=== PATIENT | female | born 1985 | race Caucasian/White ===

== ENCOUNTER → 2016-09-30 | Outpatient (REF) | payer OTHER ==
[~2016-09-30] MED LIST: IRONCAP2 PO; LEVO75TA4 PO; LEVO88TA3 PO; PRENTAB9 PO; ZOLO25TA PO; [UNRECOGNIZED DRUG - CODE] PO
== END ==
LOC: M LAB REF 17:00
PROVIDERS: ATTEND Specialist
DX: Z34.83 Encounter for supervision of other normal pregnancy, third trimester (principal)

== ENCOUNTER 2016-10-05 15:58 | Inpatient (IN) | payer OTHER ==
[2016-10-05] VITALS (9 sets, daily range): BP systolic 107–135; BP diastolic 62–86
[~2016-10-05] VITALS: Ht 167.6 cm; Wt 150.0 kg
[~2016-10-05 15:58] MED LIST changes: -LEVO88TA3 PO
[2016-10-05] MEDS ORDERED: LEVO88TA3 PO (16:21)
[2016-10-05 16:58] LABS: MEAN CORPUSCULAR HGB CONC 34.6 g/dl (32.0-36.5); MEAN CORPUSCULAR VOLUME 83.8 fl (80.0-96.0); RED CELL DISTRIBUTION WIDTH 15.5 % (11.5-14.5); WHITE BLOOD COUNT 9.4 K/mm3 (4.0-10.0)
[2016-10-05 17:04] LABS: ALT/SGPT 11 U/L (12-78); AST/SGOT 7 U/L (15-37); BILIRUBIN,TOTAL 0.2 MG/DL (0.2-1.0); GLOMERULAR FILTRATION RATE > 60.0 (>60); URIC ACID 5.6 MG/DL (2.6-6.0)
[2016-10-05 17:20] LABS: CONTROL LINE INT CTR LINE PRESENT; HIV SCRN NEGATIVE (NEGATIVE); HIV SCRN1 NEGATIVE (NEGATIVE)
[2016-10-05] MEDS: BETAMETHASONE SOLUSPAN 6MG/ML INJ 5ML (J0702) IM SCH (19:27)
--- NOTE | 2016-10-05 19:51 | HPE ---
DATE OF ADMISSION: 10/05/2016 Shannon is a 31-year-old 4, para 0-2-1-2 at 36 weeks gestation with an EDC of 11/02/2016 based on last menstrual period and confirmed by 12-week ultrasound. She presents to labor and delivery today after evaluation in the office for complaint of headache and just not feeling well since last evening. care was initiated at [facility] in the first trimester. course complicated by chronic hypertension and now with today's diagnosis of superimposed preeclampsia. She has been taking Aldomet 500 mg by mouth twice a day since early in the . Upon evaluation in the office today which she was found to have blood pressure elevated at 168/102, with +3 protein and her urine. Repeat blood pressure at rest in the office was 166/98. The decision was made to send her to labor and delivery for induction of labor at this time by Dr. Mindy Rehman. OBSTETRICAL HISTORY: September 2005 at 36 weeks gestation, spontaneous vaginal delivery, 4 pounds 7 ounces female preeclampsia. May 2011 36 weeks gestation with spontaneous vaginal delivery, 5 pounds 14 ounces female preeclampsia. 2016 elective termination of . OB LABS: Blood type A+, antibody screen negative. Initial pre-eclamptic profile at about 23 weeks gestation and returned normal results with a normal protein, urine creatinine ratio. All her other initial labs were never drawn. Gestational diabetic screening 126, GBS negative. She has undergone weekly testing with NST in the office and biophysical profiles which have all returned reassuring results. PAST MEDICAL HISTORY: Hypothyroid. Chronic hypertension. Childhood varicella. SURGERIES: Arm surgery at age 14 on her right arm. FAMILY HISTORY: Diabetes, hypertension, polycystic kidneys. TB. SOCIAL HISTORY: The father of baby is involved, his name is Hunter. She denies smoking, alcohol and drug use. There is was no history of sexually transmitted infections and she does deny a history of abuse; physical, sexual and emotional. ALLERGIES: No known drug allergies. CURRENT MEDICATIONS: Include - Aldomet 500 mg by mouth twice a day - levothyroxine 88 mg daily OBJECTIVE: Vital signs stable. Temperature 98, pulse 100, respirations 20. Upon arrival her blood pressure was 135/68. Currently her blood pressure is 116/62. However she does take Aldomet for blood pressure control, which she had taken just prior to arrival to L&D. heart rate at 16:25 hours was 155, moderate variability, positive excels, no decelerations were observed. She is currently not on external monitoring at this time. Her abdomen is gravid, cephalic presentation. Estimated weight 2500 grams. There is no pattern of regular contractions. Sterile vaginal exam performed in the office by Dr. Mindy Rehman her cervix is a fingertip dilated, long and minus three station. Pre-eclamptic labs were ordered. Upon arrival. Her spot urine was 0.97. HER PRE-ECLAMPTIC LABORATORY: CBC hemoglobin 9.7, hematocrit 28.0, platelets 241. Chemistry with uric acid at 5.6, AST 7, ALT 11 and LDH is 146. ASSESSMENT: Intrauterine at 36 weeks gestation. heart rate upon arrival to labor and delivery category one, superimposed preeclampsia upon chronic hypertension. PLAN: Per consult was Dr. Sam Willis, admit the patient to labor and delivery for induction of labor due to her current diagnosis. Out of bed ad moise. Regular diet at this time. Misoprostol 50 mcg by mouth every 4 hours for cervical ripening. Labs, saline lock, betamethasone for lung maturity because gestational age is prior to 36 and 6 days . I do anticipate labor, cervical ripening, spontaneous vaginal delivery. I did review risks to induction with the patient including failed induction, increased risk for section, intolerance to labor. The patient has had all her questions answered and decided to proceed with her induction of labor. NATANAEL
[2016-10-05] MEDS ORDERED: miSOPROStol 50 MCG 1/2 TAB (S0191) As Ordered ONE (19:55)
[2016-10-05] MEDS: miSOPROStol 50 MCG 1/2 TAB (S0191) PO SCH ×2 (19:58→23:47)
[2016-10-05] MEDS ORDERED: ACETAMINOPHEN 500 MG TAB PO PRN (20:00)
[2016-10-05] MEDS: METHYLDOPA 250 MG TAB PO SCH (20:57)
[2016-10-06] VITALS (41 sets, daily range): BP systolic 117–163; BP diastolic 57–103
[2016-10-06] MEDS: miSOPROStol 50 MCG 1/2 TAB (S0191) PO SCH (03:52)
[2016-10-06] MEDS ORDERED: FENTANYL 2MCG/ML ROPIVACAINE 0.2% NACL 250 ML CADD As Ordered ONE (04:07)
[2016-10-06 04:19] LABS: MEAN CORPUSCULAR HEMOGLOBIN 29.1 pg (27.0-33.0); MEAN CORPUSCULAR HGB CONC 33.7 g/dl (32.0-36.5); MEAN CORPUSCULAR VOLUME 86.2 fl (80.0-96.0); RED CELL DISTRIBUTION WIDTH 15.5 % (11.5-14.5); WHITE BLOOD COUNT 10.3 K/mm3 (4.0-10.0)
[2016-10-06] MEDS ORDERED: EPIDURAL COMMENT XX SCH (05:30)
[2016-10-06] MEDS ORDERED: ONDANSETRON 4MG/2ML VIAL (J2405) IV PRN (05:30)
[2016-10-06] MEDS ORDERED: diphenhydrAMINE INJ 50MG/ML VIAL (J1200) IV PRN (05:30)
[2016-10-06] MEDS ORDERED: FENTANYL/ROPIVACAINE/NACL CADD 250 ML EPIDURAL SCH (05:30)
[2016-10-06] MEDS ORDERED: NALOXONE INJ 0.4 MG/1 ML VIAL (J2310) IV PRN (05:30)
[2016-10-06] MEDS ORDERED: LACTATED RINGER'S 1000 ML IV PRN (05:30)
[2016-10-06] MEDS ORDERED: EPIDURAL/PCA KEYS XX PRN (05:30)
[2016-10-06] MEDS ORDERED: REFRIGERATOR IV KEYS XX PRN (05:30)
[2016-10-06] MEDS ORDERED: ePHEDrine SULFATE 25 MG/5 ML(5MG/ML) SYRINGE IV PRN (05:30)
[2016-10-06] MEDS ORDERED: LR 1,000 ML IV SCH (06:36)
[2016-10-06] MEDS ORDERED: OXYTOCIN DRIP 30 UNITS in APPROPRIATE DILUENT 1 EA IV SCH (06:45)
[2016-10-06] MEDS: BETAMETHASONE SOLUSPAN 6MG/ML INJ 5ML (J0702) IM SCH (07:32)
[2016-10-06] MEDS: PRENATAL VITAMIN TAB PO SCH (09:00)
[2016-10-06] MEDS: METHYLDOPA 250 MG TAB PO SCH ×2 (10:00→21:09)
[2016-10-06] MEDS ORDERED: MOM 30ML SUSPENSION UDC PO PRN (15:15)
[2016-10-06] MEDS ORDERED: RHOGAM 300 MCG (1500 IU) INJ (J2790) IM SCH (15:15)
[2016-10-06] MEDS ORDERED: ANUSOL HC CREAM 30GM TOP PRN (15:15)
[2016-10-06] MEDS ORDERED: DIBUCAINE 1% OINTMENT 30GM TOP PRN (15:15)
[2016-10-06] MEDS ORDERED: MEASLES,MUMPS,RUBELLA VACCINE INJ (MMR-II) (90707) SC SCH (15:15)
[2016-10-06] MEDS ORDERED: DOCUSATE SODIUM 100 MG CAP PO PRN (15:15)
[2016-10-06] MEDS ORDERED: IBUPROFEN 800 MG TAB PO PRN (15:15)
[2016-10-06] MEDS ORDERED: METHYLERGONOVINE MALEATE 0.2 MG TAB PO PRN (15:15)
[2016-10-06] MEDS ORDERED: OXYTOCIN INJ 10 UNITS/ML VIAL (J2590) IM ONE (15:15)
--- NOTE | 2016-10-06 15:33 | DN ---
DATE OF SERVICE: 10/06/2016 DATE OF DELIVERY: 10/06/2016 TIME OF : 1437 GENDER: Male. SCORES: 8 and 9. WEIGHT: 5 pounds 14 ounces, 2652 grams. ANESTHESIA: Epidural. LACERATIONS: None. ESTIMATED BLOOD LOSS: 300 mL. COUNTS: None. DELIVERY NOTE: On 10/06/2016, at 1437, Mrs. Zavala, a 31-year-old 4, now para 3, had a spontaneous vaginal delivery of a liveborn male , scores 8, 9. Weight 2652 grams, 5 pounds 14 ounces. Head was delivered left occipitoanterior (SERENITY) over intact peritoneum. There was a loose nuchal cord, which was manually reduced, followed by delivery of right anterior shoulder, left posterior shoulder, and corpus. Cord was clamped times two, was cut by the father of the baby under my direction. Infant was then handed to mom with a good cry. Cord blood was then obtained. Placenta was then drained and delivered grossly intact. There was 10 mL of Pitocin given intramuscularly (IM), along with uterine massage until uterus was firm. On inspection, the cervix, vagina and perineum was grossly intact and hemostatic. Mom and baby recovered in stable condition. The couple have decided to name their son
[2016-10-06] MEDS: ACETAMINOPHEN 500 MG TAB PO PRN (19:19)
[2016-10-07] MEDS: ACETAMINOPHEN 500 MG TAB PO PRN (05:50)
[2016-10-07] MEDS ORDERED: [UNRECOGNIZED DRUG - CODE] PO (08:58)
[2016-10-07] MEDS ORDERED: KETOROLAC 30 MG/ML VIAL (J1885) IV SCH (09:00)
[2016-10-07] MEDS ORDERED: ADACEL/BOOSTRIX VACCINE (DIPHTH/PERTUSS/ACELL/TETANUS)0.5ML SYR (90715) IM ONE (09:00)
[2016-10-07] MEDS ORDERED: DOCUSATE SODIUM 100 MG CAP PO SCH (09:00)
[2016-10-07] MEDS ORDERED: ACET50TA PO (09:07)
[2016-10-07] MEDS ORDERED: MOM30SS PO (09:08)
[2016-10-07] MEDS: PRENATAL VITAMIN TAB PO SCH (09:28)
[2016-10-07] MEDS: METHYLDOPA 250 MG TAB PO SCH (09:29)
[2016-10-07] MEDS ORDERED: MOM 30ML SUSPENSION UDC PO PRN (09:45)
[2016-10-07] MEDS ORDERED: KETOROLAC 30 MG/ML VIAL (J1885) IM SCH (15:00)
== END 2016-10-07 10:41 | disposition home or self-care (01) | DRG 560 ==
LOC: EDBD 15:58 → M LDI 15:58 → M OBS 10-06 17:13
PROVIDERS: ADMIT Advanced Practice Midwife; ATTEND Advanced Practice Midwife
PROC: 10E0XZZ Delivery of Products of Conception, External Approach (ICD-10-PCS; principal; 2016-10-06)
DX: O11.4 Pre-existing hypertension with pre-eclampsia, complicating childbirth (principal); Z37.0 Single live birth; Z3A.36 36 weeks gestation of pregnancy; O60.14X0 Preterm labor third trimester with preterm delivery third trimester, not applicable or unspecified; O69.82X0 Labor and delivery complicated by other cord entanglement, without compression, not applicable or unspecified

== ENCOUNTER 2016-10-18 16:49 | Emergency (ER) | payer OTHER ==
[~2016-10-18 16:49] MED LIST changes: +ACET50TA PO; +LEVO88TA3 PO; +MOM30SS PO
[2016-10-18 18:06] LABS: BASO % 0.5 % (0.0-1.0); EOS # 0.2 K/mm3 (0.0-0.50); EOS % 3.5 % (0.0-3.0); LARGE UNSTAINED CELL # 0.1 K/mm3 (0.0-0.4); LARGE UNSTAINED CELL % 1.8 % (0.0-4.0); LYMPH # 1.3 K/mm3 (1.5-4.5); LYMPH % 21.7 % (24.0-44.0); MEAN CORPUSCULAR HEMOGLOBIN 29.7 pg (27.0-33.0); MEAN CORPUSCULAR HGB CONC 33.6 g/dl (32.0-36.5); MEAN CORPUSCULAR VOLUME 88.4 fl (80.0-96.0); MONO # 0.3 K/mm3 (0.0-0.8); MONO % 4.3 % (0.0-5.0); NEUTROPHILS # 4.2 K/mm3 (1.8-7.7); NEUTROPHILS % 68.2 % (36.0-66.0); PLATELET COUNT, AUTOMATED 238 k/mm3 (150-450); RED CELL DISTRIBUTION WIDTH 13.8 % (11.5-14.5); WHITE BLOOD COUNT 6.2 K/mm3 (4.0-10.0)
[2016-10-18 18:22] LABS: CALCIUM LEVEL 8.6 MG/DL (8.5-10.1); CREATININE FOR GFR 1.3 MG/DL (0.55-1.02); GLOMERULAR FILTRATION RATE 50.5 (>60); POTASSIUM SERUM 3.6 MEQ/L (3.5-5.1)
[2016-10-18] MEDS ORDERED: ISOVUE-370 76% 100ML VIAL (Q9967) As Ordered ONE (18:25)
[2016-10-18 18:34] LABS: INR 0.95
--- NOTE | 2016-10-18 19:50 | REPUSA ---
HISTORY: Stroke. TECHNIQUE: Multiple thin section helically-acquired, axially-displayed computed tomographic images of the head-[place] of [place] were obtained from the skull base superiorly following iodinated contrast infusion intravenously. 2D reconstructions were performed according to standard protocol at the [facility] of the referring physician. Stenoses were measured according to NASCET criteria. Source images are reviewed. FINDINGS: There is normal anatomy. No flow restrictive stenoses. No AVMs or large aneurysms. IMPRESSION: Normal CTA of the [place] of [place]. Thank you for your kind referral of this patient
--- NOTE | 2016-10-18 19:50 | REPUSA ---
CLINICAL HISTORY: CVA. TECHNIQUE: Multiple axial CT images were obtained through brain without IV contrast material. COMMENTS: The study shows normal configuration of sella turcica. There are no intra or extra-axial collections. There is no mass effect or midline shift. There is no evidence of hematoma formation. No hydrocephalus is present. The ventricles are symmetrical. No abnormal calcifications are present. No significant focal abnormalities are seen either in the posterior fossa or supratentorial compartme nt. IMPRESSION: No acute intracranial pathology. No evidence of acute or chronic stroke. Thank you for your kind referral of this patient.
--- NOTE | 2016-10-18 20:21 | EDDOCDS ---
Physician Documentation [facility] Name: Shannon Zavala Age: 31 yrs Sex: Female : 1985 Arrival Date: 10/18/2016 Time: 16:49 Bed 10 Private MD: NONE Disposition: 10/18 20:07 Critical Care: Critical care not applicable. le Disposition: 10/18/16 20:05 Discharged to Home/Self Care. Impression: Headache, Malaise and fatigue. - Condition is Stable. - Discharge Instructions: General Headache Without Cause, Fatigue. - Medication Reconciliation, Local Pharmacy Hours form. - Follow up: Ravi Finch MD; When: Call to arrange an appointment; Reason: Recheck today's complaints, Continuance of care. - Problem is new. - Symptoms have improved. - Notes: Make sure you drink 12-16 oz of fluid every time you sit down to feed your baby I advise that your take over feeding the baby for tonight so you can get a full night sleep Take Tylenol, as needed, for headache Return to the ED for any further concerns Historical: - Allergies: No known drug Allergies; - Home Meds: 1. levothyroxine 88 mcg oral cap once daily 2. 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 No barriers to communication noted, The patient speaks fluent [place], Speaks appropriately for age. - Family history: Not pertinent. - : The pt / caregiver states he / she is not on anticoagulants. Home medication list is obtained from the patient. - Exposure Risk Screening:: None identified. DIRECTOR OF RESEARCH AND DEVELOPMENT: 17:06 LMP 01/2016, Delivered infant 10/06/16 jo3 Vital Signs: 16:51 BP 153 / 87; Pulse 90; Resp 18 S; Temp 97.3(O); Pulse Ox 96% on R/A; Weight 133.36 kg / gr2 294.01 lbs (M); Height 5 ft. 6 in. (167.64 cm) (R); Pain 4/10; 17:33 BP 132 / 88 (auto/); jc4 17:34 Pulse 76 MON; Pulse Ox 96% ; jc4 19:07 BP 158 / 82 (auto/); mlc 19:07 Pulse 74 MON; Pulse Ox 98% ; mlc 19:14 Pulse 64 MON; Pulse Ox 99% ; mlc 20:18 BP 153 / 90; Pulse 70; Resp 18; Temp 96.9(O); Pulse Ox 99% on R/A; Pain 0/10; ronald 16:51 Body Mass Index 47.45 (133.36 kg, 167.64 cm) gr2 MDM: 17:18 RN interventions must not delay CT ordered. le 17:18 Security Field Supervisor/Pulse Ox/q 15 min VS ordered. le 17:18 Accucheck ordered. le 17:18 IV Saline Lock ordered. le 17:18 Neuro VS q 15 Minutes ordered. le 17:18 Patient must be on CC stretcher and weighed via bed scale ordered. le 17:18 Rhythm Strip to chart ordered. le 17:19 Basic Metabolic Profile Ordered. EDMS 17:19 CBC with Diff Ordered. EDMS 17:19 Partial Thromboplastin Time Ordered. EDMS 17:19 Prothrombin Time Profile\E\INR Ordered. EDMS 17:19 CT Head Without Contrast Ordered. EDMS 17:20 ECG WITH READING ER PHYS+CARDIAG ordered. EDMS 17:30 Financial registration complete. [id number] 17:31 [facility] Payment Agreement was scanned into [employer] and attached to record. [email or web address] 17:31 [facility] Varnishing Machine Operator Order ordered. le 17:34 [facility] Varnishing Machine Operator Order complete. ar3 17:36 CT ANGIO HEAD Ordered. EDMS 18:06 Fingerstick Blood Sugar Ordered. EDMS 18:59 Basic Metabolic Profile Reviewed. le 18:59 CBC with Diff Reviewed. le 18:59 Partial Thromboplastin Time Reviewed. le 18:59 Prothrombin Time Profile\E\INR Reviewed. le 18:59 Fingerstick Blood Sugar Reviewed. le 18:59 NS 0.9% 1000 ml IV at bolus once ordered. le 19:13 Misc. Nursing Order ordered. le Administered Medications: 19:14 Drug: NS 0.9% 1000 ml [sodium chloride 0.9 % intravenous solution] Route: IV; Rate: mlc bolus; Site: left antecubital; Signatures: Dispatcher [employer] EDMS Corinne Lyons,JOSE RN jo3 Ambar Reddy, FARM GENERAL MANAGER FARM GENERAL MANAGER Roxann Parker, CARDROOM ATTENDANT CARDROOM ATTENDANT ar3 Corinne Bee, RN RN jc4 Tianna AnnRN RN dsf Clarisa Harmon, Reg Reg [email or web address] Allison Tovar RN [facility] The chart was reviewed and I authenticate all verbal orders and agree with the evaluation and treatment provided.Attachments: 17:31 [facility] Payment Agreement [email or web address] MTDD
--- NOTE | 2016-10-18 20:21 | EDDOCDS ---
Nurse's Notes [facility] Name: Shannon Zavala Age: 31 yrs Sex: Female : 1985 Arrival Date: 10/18/2016 Time: 16:49 Bed 10 Private MD: NONE Diagnosis: Headache;Malaise and fatigue Presentation: 10/18 17:00 Presenting complaint: Patient states: Sudden onset GARCIA with blurred vision and right jo3 hand numbness. Symptoms started at 1600. Hand numbness is better now but having troubles talking due to a feeling of tongue being numb. 17:05 This patient has no additional risk factors. Adult Sepsis Screening: The patient does jo3 not have new or worsening altered mentation. Patient's respiratory rate is less than 22. Systolic blood pressure is greater than 100. Patient has a qSOFA score of 0- Negative Sepsis Screen. Suicide/Homicide risk assessment- the patient denies having any suicidal and/or homicidal ideations and does not present with any other emotional, behavioral or mental health complaints. Status: Patient is not a client services assistant or dependent. Transition of care: patient was not received from another setting of care. 17:05 Acuity: KAREN Level 2 jo3 17:05 Method Of Arrival: Walkin/Carried/Asstd jo3 Triage Assessment: 17:06 Headache History: This patient does not have a history of previous headaches. General: jo3 Appears in no apparent distress, Behavior is appropriate for age, cooperative. General: Pt reports sudden onset GARCIA x 1 hr with blurred vision and right hand numbness. Blurred vision has resolved and so has hand numbness but pt states she "doesn't feel right and tongue feels numb". Pain: Pain currently is 7 out of 10 on a pain scale. HIV screening NA for this visit Offered previously. Neurological: Level of Consciousness is awake, alert, Oriented to person, place, time. 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 levothyroxine 88 mcg oral cap once daily 2. 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 No barriers to communication noted, The patient speaks fluent [place], Speaks appropriately for age. - Family history: Not pertinent. - : The pt / caregiver states he / she is not on anticoagulants. Home medication list is obtained from the patient. - Exposure Risk Screening:: None identified. Screenin:56 Screening information is obtained from the patient. Fall risk: No risks identified. ja5 Assistance ADL's: requires no assistance with activities of daily living. Abuse/DV Screen: The patient / caregiver reports he/she is: not in a situation that causes fear, pain or injury. Nutritional screening: On no prescribed diet. Advance Directives: Currently, there is no health care proxy. There is no active DNR order. There is no living will. There is no Power of Senior Counsel. home support is adequate. Assessment: 17:55 General: Appears in no apparent distress, Behavior is. Pain: Denies pain. Neurological: ja5 Level of Consciousness is awake, alert, Oriented to person, place, time, Implementation Consultant are equal bilaterally Moves all extremities. Speech is normal, Facial symmetry appears normal. Cardiovascular: Capillary refill < 3 seconds Heart tones S1 S2 present. Respiratory: Airway is patent Respiratory effort is even, unlabored, Respiratory pattern is regular, symmetrical, Breath sounds are clear bilaterally. Derm: Skin is healthy with good turgor, Skin is Skin is pink, warm & dry. 18:55 General: Pt returned from CT via stretcher. No distress noted at this time. Color pink, jc4 skin warm and dry. Respirations easy and full. classroom monitor - sinus rhythm without ectopy. Pt states that speech seems normal, denies any numbness or tingling. States, "just feel tired". 19:14 General: Appears in no apparent distress, comfortable, Behavior is cooperative. Pain: mlc Location: forehead Pain currently is 4 out of 10 on a pain scale. Neurological: Level of Consciousness is awake, alert, obeys commands, Oriented to person, place, time, Implementation Consultant are equal bilaterally Moves all extremities. Speech is normal, Facial symmetry appears normal, Pupils are PERRLA, Denies blurred vision dizziness, numbness. Cardiovascular: Rhythm is sinus rhythm. Respiratory: Airway is patent Respiratory effort is even, unlabored, Respiratory pattern is regular, symmetrical. Derm: Skin is pink, warm & dry. 19:14 Reassessment: pt states that she is probably just exhausted from having a and mlc being up every 3 hours. pt states she doesn't make time for herself to eat which might be why she has a headache. . 20:01 Reassessment: Patient appears in no apparent distress at this time. Patient states mlc feeling better. Patient states symptoms have improved. pt able to ambulate to bathroom, tolerated well. resp easy/unlabored. . 20:19 Adult Sepsis Screening: The patient does not have new or worsening altered mentation. dsf Patient's respiratory rate is less than 22. Systolic blood pressure is greater than 100. Patient has a qSOFA score of 0- Negative Sepsis Screen. General: Appears in no apparent distress, Behavior is appropriate for age, cooperative. Pain: Denies pain. Neurological: Level of Consciousness is awake, alert. Cardiovascular: No deficits noted. Respiratory: No deficits noted. GI: No deficits noted. Derm: Skin is pink, warm & dry. Vital Signs: 16:51 BP 153 / 87; Pulse 90; Resp 18 S; Temp 97.3(O); Pulse Ox 96% on R/A; Weight 133.36 kg gr2 (M); Height 5 ft. 6 in. (167.64 cm) (R); Pain 4/10; 17:33 BP 132 / 88 (auto/); jc4 17:34 Pulse 76 MON; Pulse Ox 96% ; jc4 19:07 BP 158 / 82 (auto/); mlc 19:07 Pulse 74 MON; Pulse Ox 98% ; mlc 19:14 Pulse 64 MON; Pulse Ox 99% ; mlc 20:18 BP 153 / 90; Pulse 70; Resp 18; Temp 96.9(O); Pulse Ox 99% on R/A; Pain 0/10; ronald 16:51 Body Mass Index 47.45 (133.36 kg, 167.64 cm) gr2 Vitals: 16:51 Log In Time: October 18, 2016 at 16:51. gr2 ED Course: 16:50 Patient visited by Mariah Cooley. gr2 16:50 Patient moved to Waiting gr2 16:51 NONE is Private Physician. gr2 16:55 Patient visited by aMriah Cooley. gr2 16:55 Patient moved to Pre RCE gr2 17:01 Patient visited by Corinne Lyons RN. jo3 17:02 Lina Matamoros RN is Primary Nurse. jo3 17:02 Corinne Bee RN is Primary Nurse. jo3 17:02 Patient moved to 10 jo3 17:06 Triage Initiated jo3 17:09 Patient visited by Corinne Lyons RN. jo3 17:12 [facility] le 17:16 Patient visited by Ambar Reddy FNP. le 17:28 Patient visited by Isabel Tubbs PCA. ct3 17:28 Accompanied by Family Member, Patient has correct armband on for positive ct3 identification. Placed in gown. Bed in low position. Call light in reach. Side rails up X 1. classroom monitor on. Pulse ox on. NIBP on. 17:31 [facility] Payment Agreement was scanned into [employer] and attached to record. ks16 17:55 The patient / caregiver is instructed regarding the plan of care and ED course. jc4 17:57 Basic Metabolic Profile Sent. ja5 17:57 CBC with Diff Sent. ja5 17:57 Partial Thromboplastin Time Sent. ja5 17:57 Prothrombin Time Profile\\E\\INR Sent. ja5 17:57 Inserted saline lock: 20 gauge in left antecubital area. ja5 18:19 Patient visited by Isabel Tubbs PCA. ct3 18:55 Patient visited by Corinne Bee RN. jc4 18:56 Allison Tovar,JOSE is Primary Nurse. mlc 19:03 Primary Nurse role handed off by Corinne Bee RN mlc 19:04 Primary Nurse role handed off by Lina Matamoros RN mlc 19:16 Patient visited by Allison Tovar RN. mlc 20:02 Patient visited by Allison Tovar,JOSE. mlc 20:05 Ravi Finch MD is Referral Physician. le 20:14 CT Head Without Contrast Returned. EDMS 20:14 CT ANGIO HEAD Returned. EDMS 20:18 Patient visited by Florence Bray PCA. ronald 20:19 Discontinued lock intact, bleeding controlled, pressure dressing applied, No dsf redness/swelling at site. No procedures done that require assistance. Administered Medications: 19:14 Drug: NS 0.9% 1000 ml [sodium chloride 0.9 % intravenous solution] Route: IV; Rate: mlc bolus; Site: left antecubital; Order Results: Lab Order: Basic Metabolic Profile; SPEC10/18/16 17:52 Test: GLUCOSE, FASTING; Value: 102; Range: 70-105; Units: MG/DL; Status: F Test: BLOOD UREA NITROGEN; Value: 16; Range: 7-18; Units: MG/DL; Status: F Test: CREATININE FOR GFR; Value: 1.30; Range: 0.55-1.02; Abnormal: Above high normal; Units: MG/DL; Status: F Test: GLOMERULAR FILTRATION RATE; Value: 50.5; Range: >60; Abnormal: Below low normal; Status: F Test: SODIUM LEVEL; Value: 141; Range: 136-145; Units: MEQ/L; Status: F Test: POTASSIUM SERUM; Value: 3.6; Range: 3.5-5.1; Units: MEQ/L; Status: F Test: CHLORIDE LEVEL; Value: 105; Range: 98-107; Units: MEQ/L; Status: F Test: CARBON DIOXIDE LEVEL; Value: 27; Range: 21-32; Units: MEQ/L; Status: F Test: ANION GAP; Value: 9; Range: 8-16; Units: MEQ/L; Status: F Test: CALCIUM LEVEL; Value: 8.6; Range: 8.5-10.1; Units: MG/DL; Status: F Test Note: ; Units are mL/min/1.73 m2 Chronic Kidney Disease Staging per NKF: Stage I & II GFR >=60 Normal to Mildly Decreased Stage III GFR 30-59 Moderately Decreased Stage IV GFR 15-29 Severely Decreased Stage V GFR <15 Very Little GFR Left ESRD GFR <15 on FRONT WORKER Lab Order: CBC with Diff; SPEC10/18/16 17:52 Test: WHITE BLOOD COUNT; Value: 6.2; Range: 4.0-10.0; Units: K/mm3; Status: F Test: RED BLOOD COUNT; Value: 4.12; Range: 4.00-5.40; Units: M/mm3; Status: F Test: HEMOGLOBIN; Value: 12.2; Range: 12.0-16.0; Units: g/dl; Status: F Test: HEMATOCRIT; Value: 36.4; Range: 36.0-47.0; Units: %; Status: F Test: MEAN CORPUSCULAR VOLUME; Value: 88.4; Range: 80.0-96.0; Units: fl; Status: F Test: MEAN CORPUSCULAR HEMOGLOBIN; Value: 29.7; Range: 27.0-33.0; Units: pg; Status: F Test: MEAN CORPUSCULAR HGB CONC; Value: 33.6; Range: 32.0-36.5; Units: g/dl; Status: F Test: RED CELL DISTRIBUTION WIDTH; Value: 13.8; Range: 11.5-14.5; Units: %; Status: F Test: PLATELET COUNT, AUTOMATED; Value: 238; Range: 150-450; Units: k/mm3; Status: F Test: NEUTROPHILS %; Value: 68.2; Range: 36.0-66.0; Abnormal: Above high normal; Units: %; Status: F Test: LYMPH %; Value: 21.7; Range: 24.0-44.0; Abnormal: Below low normal; Units: %; Status: F Test: MONO %; Value: 4.3; Range: 0.0-5.0; Units: %; Status: F Test: EOS %; Value: 3.5; Range: 0.0-3.0; Abnormal: Above high normal; Units: %; Status: F Test: BASO %; Value: 0.5; Range: 0.0-1.0; Units: %; Status: F Test: LARGE UNSTAINED CELL %; Value: 1.8; Range: 0.0-4.0; Units: %; Status: F Test: NEUTROPHILS #; Value: 4.2; Range: 1.8-7.7; Units: K/mm3; Status: F Test: LYMPH #; Value: 1.3; Range: 1.5-4.5; Abnormal: Below low normal; Units: K/mm3; Status: F Test: MONO #; Value: 0.3; Range: 0.0-0.8; Units: K/mm3; Status: F Test: EOS #; Value: 0.2; Range: 0.0-0.50; Units: K/mm3; Status: F Test: BASO #; Value: 0.0; Range: 0.0-0.2; Units: K/mm3; Status: F Test: LARGE UNSTAINED CELL #; Value: 0.1; Range: 0.0-0.4; Units: K/mm3; Status: F Lab Order: Partial Thromboplastin Time; SPEC'M 10/18/16 17:52 Test: PARTIAL THROMBOPLASTIN TIME; Value: 28.5; Range: 26.6-37.1; Units: SECONDS; Status: F Lab Order: Prothrombin Time Profile\\E\\INR; SPEC'M 10/18/16 17:52 Test: PROTHROMBIN TIME; Value: 12.8; Range: 12.3-14.5; Units: SECONDS; Status: F Test: INR; Value: 0.95; Status: F Test Note: ; THERAPUTIC HUMAN INR VALUES INDICATIONS NORMAL RANGES PROPHYLAXIS/TREATMENT OF: VENOUS THROMBOSIS 2.0-3.0 PULMONARY EMBOLISM 2.0-3.0 PREVENTION OF SYSTEMIC EMBOLISM FROM: TISSUE HEART VALVES 2.0-3.0 ACUTE MYOCARDIAL INFARCTION 2.0-3.0 VALVULAR HEART DISEASE 2.0-3.0 ATRIAL FIBRILLATION 2.0-3.0 MECHANICAL VALVES(HIGH RISK) 2.5-3.5 RECURRENT MYOCARDIAL INFARCTION 2.5-3.5 Lab Order: Fingerstick Blood Sugar; SPEC'M 10/18/16 17:47 Test: BEDSIDE GLUCOSE; Value: 102; Range: 70-105; Units: MG/DL; Status: F Radiology Order: CT Head Without Contrast Test: CT Head Without Contrast REASON FOR EXAMINATION: CVA <4.5hrs; ; CLINICAL HISTORY: CVA.; TECHNIQUE: Multiple axial CT images were obtained through brain without IV contrast material.; COMMENTS:; The study shows normal configuration of sella turcica.; There are no intra or extra-axial collections. There is no mass effect or midline shift. There is no; evidence of hematoma formation. No hydrocephalus is present.; The ventricles are symmetrical. No abnormal calcifications are present.; No significant focal abnormalities are seen either in the posterior fossa or supratentorial compartme; nt.; IMPRESSION:; No acute intracranial pathology. No evidence of acute or chronic stroke.; Thank you for your kind referral of this patient.; ; ; Radiology Order: CT ANGIO HEAD Test: CT ANGIO HEAD REASON FOR EXAMINATION: BLURRED VISION; ; ; HISTORY: Stroke.; TECHNIQUE: Multiple thin section helically-acquired, axially-displayed computed tomographic images of; the head[place] of [place] were obtained from the skull base superiorly following iodinated contrast; infusion intravenously. 2D reconstructions were performed according to standard protocol at the ruste; of the referring physician. Stenoses were measured according to NASCET criteria. Source images are; reviewed.; FINDINGS:; There is normal anatomy.; No flow restrictive stenoses. No AVMs or large aneurysms.; IMPRESSION:; Normal CTA of the [place] of [place].; Thank you for your kind referral of this patient; ; Outcome: 20:05 Discharge ordered by Provider. le 20:20 Discharge Assessment: Patient awake, alert and oriented x 3. No cognitive and/or dsf functional deficits noted. Patient verbalized understanding of disposition instructions. patient administered narcotics - no. The following High Risk Discharge criteria are identified: None. Discharged to home ambulatory. Condition: stable. Discharge instructions given to patient, Instructed on discharge instructions, follow up and referral plans. medication usage, Demonstrated understanding of instructions, Pt was receptive of discharge instructions/ teaching. CT Study completed. Property sent home with patient. 20:20 Patient left the ED. dsf Signatures: Dispatcher [employer] EDMS Corinne Lyons RN RN jo3 Ambar Reddy, CLOTH CHECKER Corinne Covarrubias RN RN jc4 Florence Bray, DIRECTOR OF MARKET INTELLIGENCE DIRECTOR OF MARKET INTELLIGENCE ronald Isabel Tubbs, DIRECTOR OF MARKET INTELLIGENCE DIRECTOR OF MARKET INTELLIGENCE ct3 Tianna Ann RN RN dsf Mariah Cooley gr2 Allison Tovar RN RN mlc Sorenson, Kimberly, Reg Reg ks16 Lina MatamorosRN JOSE ken5 MTDD
--- NOTE | 2016-10-19 07:22 | ECGEPIP ---
Stationary ECG Study [facility] - ED Test Date: 2016-10-18 Pat Name: RUPERTO MARQUEZ Department: Room: - Gender: F [employer] Rover: ct : 1985 Requested By: QUINCY PARSON Order Number: [id number] Reading MD: Casa Romo Measurements Intervals [place] Rate: 73 P: 64 WV: 147 QRS: 49 QRSD: 94 T: 54 QT: 389 QTc: 430 Interpretive Statements SINUS RHYTHM POSSIBLE LEFT VENTRICULAR HYPERTROPHY NO PRIORS Electronically Signed On 10-19-2016 7:22:00 EST by Casa Romo
--- NOTE | 2016-10-20 21:21 | EDDOCDS ---
Physician Documentation [facility] Name: Shannon Zavala Age: 31 yrs Sex: Female : 1985 Arrival Date: 10/18/2016 Time: 16:49 Bed 10 Private MD: NONE Disposition: 10/18 20:07 Critical Care: Critical care not applicable. le Disposition: 10/18/16 20:05 Discharged to Home/Self Care. Impression: Headache, Malaise and fatigue. - Condition is Stable. - Discharge Instructions: General Headache Without Cause, Fatigue. - Medication Reconciliation, Local Pharmacy Hours form. - Follow up: Ravi Finch MD; When: Call to arrange an appointment; Reason: Recheck today's complaints, Continuance of care. - Problem is new. - Symptoms have improved. - Notes: Make sure you drink 12-16 oz of fluid every time you sit down to feed your baby I advise that your take over feeding the baby for tonight so you can get a full night sleep Take Tylenol, as needed, for headache Return to the ED for any further concerns Historical: - Allergies: No known drug Allergies; - Home Meds: 1. levothyroxine 88 mcg oral cap once daily 2. 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 No barriers to communication noted, The patient speaks fluent Amharic, Speaks appropriately for age. - Family history: Not pertinent. - : The pt / caregiver states he / she is not on anticoagulants. Home medication list is obtained from the patient. - Exposure Risk Screening:: None identified. 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 6 in. (167.64 cm) (R); Pain 4/10; 17:33 BP 132 / 88 (auto/); jc4 17:34 Pulse 76 MON; Pulse Ox 96% ; jc4 19:07 BP 158 / 82 (auto/); mlc 19:07 Pulse 74 MON; Pulse Ox 98% ; mlc 19:14 Pulse 64 MON; Pulse Ox 99% ; mlc 20:18 BP 153 / 90; Pulse 70; Resp 18; Temp 96.9(O); Pulse Ox 99% on R/A; Pain 0/10; ronald 16:51 Body Mass Index 47.45 (133.36 kg, 167.64 cm) gr2 MDM: 17:18 RN interventions must not delay CT ordered. le 17:18 Biology Internship/Pulse Ox/q 15 min VS ordered. le 17:18 Accucheck ordered. le 17:18 IV Saline Lock ordered. le 17:18 Neuro VS q 15 Minutes ordered. le 17:18 Patient must be on CC stretcher and weighed via bed scale ordered. le 17:18 Rhythm Strip to chart ordered. le 17:19 Basic Metabolic Profile Ordered. EDMS 17:19 CBC with Diff Ordered. EDMS 17:19 Partial Thromboplastin Time Ordered. EDMS 17:19 Prothrombin Time Profile\E\INR Ordered. EDMS 17:19 CT Head Without Contrast Ordered. EDMS 17:20 ECG WITH READING ER PHYS+CARDIAG ordered. EDMS 17:30 Financial registration complete. ks16 17:31 [facility] Payment Agreement was scanned into [employer] and attached to record. ks16 17:31 [facility] [employer] Order ordered. le 17:34 [facility] [employer] Order complete. ar3 17:36 CT ANGIO HEAD Ordered. EDMS 18:06 Fingerstick Blood Sugar Ordered. EDMS 18:59 Basic Metabolic Profile Reviewed. le 18:59 CBC with Diff Reviewed. le 18:59 Partial Thromboplastin Time Reviewed. le 18:59 Prothrombin Time Profile\E\INR Reviewed. le 18:59 Fingerstick Blood Sugar Reviewed. le 18:59 NS 0.9% 1000 ml IV at bolus once ordered. le 19:13 [facility]. Nursing Order ordered. le 22:25 T-Sheet-- Draft Copy was scanned into [employer] and attached to record. klr 10/19 11:06 ECG/EKG was scanned into [employer] and attached to record. gb 11:06 Trend VS was scanned into [employer] and attached to record. gb Administered Medications: 10/18 19:14 Drug: NS 0.9% 1000 ml [sodium chloride 0.9 % intravenous solution] Route: IV; Rate: mlc bolus; Site: left antecubital; Signatures: Dispatcher [employer] EDMagy Cary, Reg Reg gb Corinne Lyons,JOSE GARCIA jo3 Ambar Reddy, PURCHASING COORDINATOR PURCHASING COORDINATOR Roxann Parker, AIRCRAFT POWERPLANT REPAIRER AIRCRAFT POWERPLANT REPAIRER ar3 Corinne Bee RN RN jcTianna Hughes RN RN dsf Sorenson, Kimberly, Reg Reg ks16 Fay Parnell Mandy RN mlc The chart was reviewed and I authenticate all verbal orders and agree with the evaluation and treatment provided.Attachments: 17:31 [facility] Payment Agreement ks16 22:25 T-Sheet-- Draft Copy r 10/19 11:06 ECG/EKG ruthie Chart Complete MTDD
--- NOTE | 2016-10-20 21:21 | EDDOCDS ---
Nurse's Notes [facility] Name: Shannon Zavala Age: 31 yrs Sex: Female : 1985 Arrival Date: 10/18/2016 Time: 16:49 Bed 10 Private MD: NONE Diagnosis: Headache;Malaise and fatigue Presentation: 10/18 17:00 Presenting complaint: Patient states: Sudden onset GARCIA with blurred vision and right jo3 hand numbness. Symptoms started at 1600. Hand numbness is better now but having troubles talking due to a feeling of tongue being numb. 17:05 This patient has no additional risk factors. Adult Sepsis Screening: The patient does jo3 not have new or worsening altered mentation. Patient's respiratory rate is less than 22. Systolic blood pressure is greater than 100. Patient has a qSOFA score of 0- Negative Sepsis Screen. Suicide/Homicide risk assessment- the patient denies having any suicidal and/or homicidal ideations and does not present with any other emotional, behavioral or mental health complaints. Status: Patient is not a health services administrator or dependent. Transition of care: patient was not received from another setting of care. 17:05 Acuity: KAREN Level 2 jo3 17:05 Method Of Arrival: Walkin/Carried/Asstd jo3 Triage Assessment: 17:06 Headache History: This patient does not have a history of previous headaches. General: jo3 Appears in no apparent distress, Behavior is appropriate for age, cooperative. General: Pt reports sudden onset GARCIA x 1 hr with blurred vision and right hand numbness. Blurred vision has resolved and so has hand numbness but pt states she "doesn't feel right and tongue feels numb". Pain: Pain currently is 7 out of 10 on a pain scale. HIV screening NA for this visit Offered previously. Neurological: Level of Consciousness is awake, alert, Oriented to person, place, time. 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 levothyroxine 88 mcg oral cap once daily 2. 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 No barriers to communication noted, The patient speaks fluent Ethiopian, Speaks appropriately for age. - Family history: Not pertinent. - : The pt / caregiver states he / she is not on anticoagulants. Home medication list is obtained from the patient. - Exposure Risk Screening:: None identified. Screenin:56 Screening information is obtained from the patient. Fall risk: No risks identified. ja5 Assistance ADL's: requires no assistance with activities of daily living. Abuse/DV Screen: The patient / caregiver reports he/she is: not in a situation that causes fear, pain or injury. Nutritional screening: On no prescribed diet. Advance Directives: Currently, there is no health care proxy. There is no active DNR order. There is no living will. There is no Power of Tosser. home support is adequate. Assessment: 17:55 General: Appears in no apparent distress, Behavior is. Pain: Denies pain. Neurological: ja5 Level of Consciousness is awake, alert, Oriented to person, place, time, Clinical Data Analyst are equal bilaterally Moves all extremities. Speech is normal, Facial symmetry appears normal. Cardiovascular: Capillary refill < 3 seconds Heart tones S1 S2 present. Respiratory: Airway is patent Respiratory effort is even, unlabored, Respiratory pattern is regular, symmetrical, Breath sounds are clear bilaterally. Derm: Skin is healthy with good turgor, Skin is Skin is pink, warm & dry. 18:55 General: Pt returned from CT via stretcher. No distress noted at this time. Color pink, jc4 skin warm and dry. Respirations easy and full. laboratory monitor - sinus rhythm without ectopy. Pt states that speech seems normal, denies any numbness or tingling. States, "just feel tired". 19:14 General: Appears in no apparent distress, comfortable, Behavior is cooperative. Pain: mlc Location: forehead Pain currently is 4 out of 10 on a pain scale. Neurological: Level of Consciousness is awake, alert, obeys commands, Oriented to person, place, time, Clinical Data Analyst are equal bilaterally Moves all extremities. Speech is normal, Facial symmetry appears normal, Pupils are PERRLA, Denies blurred vision dizziness, numbness. Cardiovascular: Rhythm is sinus rhythm. Respiratory: Airway is patent Respiratory effort is even, unlabored, Respiratory pattern is regular, symmetrical. Derm: Skin is pink, warm & dry. 19:14 Reassessment: pt states that she is probably just exhausted from having a and mlc being up every 3 hours. pt states she doesn't make time for herself to eat which might be why she has a headache. . 20:01 Reassessment: Patient appears in no apparent distress at this time. Patient states mlc feeling better. Patient states symptoms have improved. pt able to ambulate to bathroom, tolerated well. resp easy/unlabored. . 20:19 Adult Sepsis Screening: The patient does not have new or worsening altered mentation. dsf Patient's respiratory rate is less than 22. Systolic blood pressure is greater than 100. Patient has a qSOFA score of 0- Negative Sepsis Screen. General: Appears in no apparent distress, Behavior is appropriate for age, cooperative. Pain: Denies pain. Neurological: Level of Consciousness is awake, alert. Cardiovascular: No deficits noted. Respiratory: No deficits noted. GI: No deficits noted. Derm: Skin is pink, warm & dry. Vital Signs: 16:51 BP 153 / 87; Pulse 90; Resp 18 S; Temp 97.3(O); Pulse Ox 96% on R/A; Weight 133.36 kg gr2 (M); Height 5 ft. 6 in. (167.64 cm) (R); Pain 4/10; 17:33 BP 132 / 88 (auto/); jc4 17:34 Pulse 76 MON; Pulse Ox 96% ; jc4 19:07 BP 158 / 82 (auto/); mlc 19:07 Pulse 74 MON; Pulse Ox 98% ; mlc 19:14 Pulse 64 MON; Pulse Ox 99% ; mlc 20:18 BP 153 / 90; Pulse 70; Resp 18; Temp 96.9(O); Pulse Ox 99% on R/A; Pain 0/10; ronald 16:51 Body Mass Index 47.45 (133.36 kg, 167.64 cm) gr2 Vitals: 16:51 Log In Time: October 18, 2016 at 16:51. gr2 ED Course: 16:50 Patient visited by Mariah Cooley. gr2 16:50 Patient moved to Waiting gr2 16:51 NONE is Private Physician. gr2 16:55 Patient visited by Mariah Cooley. gr2 16:55 Patient moved to Pre RCE gr2 17:01 Patient visited by Corinne Lyons RN. jo3 17:02 Lina Matamoros RN is Primary Nurse. jo3 17:02 Corinne Bee RN is Primary Nurse. jo3 17:02 Patient moved to 10 jo3 17:06 Triage Initiated jo3 17:09 Patient visited by Corinne Lyons RN. jo3 17:12 [facility] le 17:16 Patient visited by Ambar Reddy FNP. le 17:28 Patient visited by Isabel Tubbs PCA. ct3 17:28 Accompanied by Family Member, Patient has correct armband on for positive ct3 identification. Placed in gown. Bed in low position. Call light in reach. Side rails up X 1. laboratory monitor on. Pulse ox on. NIBP on. 17:31 [facility] Payment Agreement was scanned into [employer] and attached to record. ks16 17:55 The patient / caregiver is instructed regarding the plan of care and ED course. jc4 17:57 Basic Metabolic Profile Sent. ja5 17:57 CBC with Diff Sent. ja5 17:57 Partial Thromboplastin Time Sent. ja5 17:57 Prothrombin Time Profile\\E\\INR Sent. ja5 17:57 Inserted saline lock: 20 gauge in left antecubital area. ja5 18:19 Patient visited by Isabel Tubbs PCA. ct3 18:55 Patient visited by Corinne Bee RN. jc4 18:56 Allison Tovar,JOSE is Primary Nurse. mlc 19:03 Primary Nurse role handed off by Corinne Bee RN mlc 19:04 Primary Nurse role handed off by Lina Matamoros RN mlc 19:16 Patient visited by Allison Tovar RN. mlc 20:02 Patient visited by Allison Tovar,JOSE. mlc 20:05 Ravi Finch MD is Referral Physician. le 20:14 CT Head Without Contrast Returned. EDMS 20:14 CT ANGIO HEAD Returned. EDMS 20:18 Patient visited by Florence Bray PCA. ronald 20:19 Discontinued lock intact, bleeding controlled, pressure dressing applied, No dsf redness/swelling at site. No procedures done that require assistance. 22:25 T-Sheet-- Draft Copy was scanned into [employer] and attached to record. klr 10/19 07:28 ELECTROCARDIOGRAM ADULT Returned. EDMS 11:06 ECG/EKG was scanned into [employer] and attached to record. gb 11:06 Trend VS was scanned into [employer] and attached to record. gb Administered Medications: 10/18 19:14 Drug: NS 0.9% 1000 ml [sodium chloride 0.9 % intravenous solution] Route: IV; Rate: mlc bolus; Site: left antecubital; Attachments: 11:06 Trend VS gb Order Results: Lab Order: Basic Metabolic Profile; SPEC'M 10/18/16 17:52 Test: GLUCOSE, FASTING; Value: 102; Range: 70-105; Units: MG/DL; Status: F Test: BLOOD UREA NITROGEN; Value: 16; Range: 7-18; Units: MG/DL; Status: F Test: CREATININE FOR GFR; Value: 1.30; Range: 0.55-1.02; Abnormal: Above high normal; Units: MG/DL; Status: F Test: GLOMERULAR FILTRATION RATE; Value: 50.5; Range: >60; Abnormal: Below low normal; Status: F Test: SODIUM LEVEL; Value: 141; Range: 136-145; Units: MEQ/L; Status: F Test: POTASSIUM SERUM; Value: 3.6; Range: 3.5-5.1; Units: MEQ/L; Status: F Test: CHLORIDE LEVEL; Value: 105; Range: 98-107; Units: MEQ/L; Status: F Test: CARBON DIOXIDE LEVEL; Value: 27; Range: 21-32; Units: MEQ/L; Status: F Test: ANION GAP; Value: 9; Range: 8-16; Units: MEQ/L; Status: F Test: CALCIUM LEVEL; Value: 8.6; Range: 8.5-10.1; Units: MG/DL; Status: F Test Note: ; Units are mL/min/1.73 m2 Chronic Kidney Disease Staging per NKF: Stage I & II GFR >=60 Normal to Mildly Decreased Stage III GFR 30-59 Moderately Decreased Stage IV GFR 15-29 Severely Decreased Stage V GFR <15 Very Little GFR Left ESRD GFR <15 on PLASTIC CUTTER Lab Order: CBC with Diff; SPEC'M 10/18/16 17:52 Test: WHITE BLOOD COUNT; Value: 6.2; Range: 4.0-10.0; Units: K/mm3; Status: F Test: RED BLOOD COUNT; Value: 4.12; Range: 4.00-5.40; Units: M/mm3; Status: F Test: HEMOGLOBIN; Value: 12.2; Range: 12.0-16.0; Units: g/dl; Status: F Test: HEMATOCRIT; Value: 36.4; Range: 36.0-47.0; Units: %; Status: F Test: MEAN CORPUSCULAR VOLUME; Value: 88.4; Range: 80.0-96.0; Units: fl; Status: F Test: MEAN CORPUSCULAR HEMOGLOBIN; Value: 29.7; Range: 27.0-33.0; Units: pg; Status: F Test: MEAN CORPUSCULAR HGB CONC; Value: 33.6; Range: 32.0-36.5; Units: g/dl; Status: F Test: RED CELL DISTRIBUTION WIDTH; Value: 13.8; Range: 11.5-14.5; Units: %; Status: F Test: PLATELET COUNT, AUTOMATED; Value: 238; Range: 150-450; Units: k/mm3; Status: F Test: NEUTROPHILS %; Value: 68.2; Range: 36.0-66.0; Abnormal: Above high normal; Units: %; Status: F Test: LYMPH %; Value: 21.7; Range: 24.0-44.0; Abnormal: Below low normal; Units: %; Status: F Test: MONO %; Value: 4.3; Range: 0.0-5.0; Units: %; Status: F Test: EOS %; Value: 3.5; Range: 0.0-3.0; Abnormal: Above high normal; Units: %; Status: F Test: BASO %; Value: 0.5; Range: 0.0-1.0; Units: %; Status: F Test: LARGE UNSTAINED CELL %; Value: 1.8; Range: 0.0-4.0; Units: %; Status: F Test: NEUTROPHILS #; Value: 4.2; Range: 1.8-7.7; Units: K/mm3; Status: F Test: LYMPH #; Value: 1.3; Range: 1.5-4.5; Abnormal: Below low normal; Units: K/mm3; Status: F Test: MONO #; Value: 0.3; Range: 0.0-0.8; Units: K/mm3; Status: F Test: EOS #; Value: 0.2; Range: 0.0-0.50; Units: K/mm3; Status: F Test: BASO #; Value: 0.0; Range: 0.0-0.2; Units: K/mm3; Status: F Test: LARGE UNSTAINED CELL #; Value: 0.1; Range: 0.0-0.4; Units: K/mm3; Status: F Lab Order: Partial Thromboplastin Time; SPEC'M 10/18/16 17:52 Test: PARTIAL THROMBOPLASTIN TIME; Value: 28.5; Range: 26.6-37.1; Units: SECONDS; Status: F Lab Order: Prothrombin Time Profile\\E\\INR; SPEC' 10/18/16 17:52 Test: PROTHROMBIN TIME; Value: 12.8; Range: 12.3-14.5; Units: SECONDS; Status: F Test: INR; Value: 0.95; Status: F Test Note: ; THERAPUTIC HUMAN INR VALUES INDICATIONS NORMAL RANGES PROPHYLAXIS/TREATMENT OF: VENOUS THROMBOSIS 2.0-3.0 PULMONARY EMBOLISM 2.0-3.0 PREVENTION OF SYSTEMIC EMBOLISM FROM: TISSUE HEART VALVES 2.0-3.0 ACUTE MYOCARDIAL INFARCTION 2.0-3.0 VALVULAR HEART DISEASE 2.0-3.0 ATRIAL FIBRILLATION 2.0-3.0 MECHANICAL VALVES(HIGH RISK) 2.5-3.5 RECURRENT MYOCARDIAL INFARCTION 2.5-3.5 Lab Order: Fingerstick Blood Sugar; SPEC'M 10/18/16 17:47 Test: BEDSIDE GLUCOSE; Value: 102; Range: 70-105; Units: MG/DL; Status: F Radiology Order: CT Head Without Contrast Test: CT Head Without Contrast REASON FOR EXAMINATION: CVA <4.5hrs; ; CLINICAL HISTORY: CVA.; TECHNIQUE: Multiple axial CT images were obtained through brain without IV contrast material.; COMMENTS:; The study shows normal configuration of sella turcica.; There are no intra or extra-axial collections. There is no mass effect or midline shift. There is no; evidence of hematoma formation. No hydrocephalus is present.; The ventricles are symmetrical. No abnormal calcifications are present.; No significant focal abnormalities are seen either in the posterior fossa or supratentorial compartme; nt.; IMPRESSION:; No acute intracranial pathology. 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; : 1985 Requested By: AMBAR PARSON; Order Number: [id number] Reading MD: Casa Romo; Measurements; Intervals [place]; Rate: 73 P: 64; MI: 147 QRS: 49; QRSD: 94 T: 54; QT: 389; QTc: 430; Interpretive Statements; SINUS RHYTHM; POSSIBLE LEFT VENTRICULAR HYPERTROPHY; NO PRIORS; Electronically Signed On 10-19-2016 7:22:00 EST by Casa Romo; Radiology Order: CT ANGIO HEAD Test: CT ANGIO HEAD REASON FOR EXAMINATION: BLURRED VISION; ; ; HISTORY: Stroke.; TECHNIQUE: Multiple thin section helically-acquired, axially-displayed computed tomographic images of; the head[place] were obtained from the skull base superiorly following iodinated contrast; infusion intravenously. 2D reconstructions were performed according to standard protocol at the reque; st of the referring physician. Stenoses were measured according to NASCET criteria. Source images are; reviewed.; FINDINGS:; There is normal anatomy.; No flow restrictive stenoses. No AVMs or large aneurysms.; IMPRESSION:; Normal CTA of the [place] of [place].; Thank you for your kind referral of this patient; ; Outcome: 10/18 20:05 Discharge ordered by Provider. le 20:20 Discharge Assessment: Patient awake, alert and oriented x 3. No cognitive and/or dsf functional deficits noted. Patient verbalized understanding of disposition instructions. patient administered narcotics - no. The following High Risk Discharge criteria are identified: None. Discharged to home ambulatory. Condition: stable. Discharge instructions given to patient, Instructed on discharge instructions, follow up and referral plans. medication usage, Demonstrated understanding of instructions, Pt was receptive of discharge instructions/ teaching. CT Study completed. Property sent home with patient. 20:20 Patient left the ED. dsf Signatures: Dispatcher [employer] EDMS Magy Armendariz, Reg Reg gb Corinne Lyons,RN RN jo3 Ambar Reddy, FISHER HAND LINE FISHER HAND LINE Corinne Chavez, RN RN jc4 Florence Bray, CASE MANAGEMENT ASSOCIATE CASE MANAGEMENT ASSOCIATE ronald Tubbs, Isabel, CASE MANAGEMENT ASSOCIATE CASE MANAGEMENT ASSOCIATE ct3 Tianna AnnRN RN dsf Mariah Cooley gr2 Allison Tovar,RN RN Clarisa Gutierrez, Reg Reg ks16 Parmjit, Lina Portillo,RN RN ja5 Chart Complete MTDDavid
--- NOTE | 2016-10-20 21:21 | EDDOCDS ---
Physician Documentation [facility] Name: Shannon Zavala Age: 31 yrs Sex: Female : 1985 Arrival Date: 10/18/2016 Time: 16:49 Bed 10 Private MD: NONE Disposition: 10/18 20:07 Critical Care: Critical care not applicable. le Disposition: 10/18/16 20:05 Discharged to Home/Self Care. Impression: Headache, Malaise and fatigue. - Condition is Stable. - Discharge Instructions: General Headache Without Cause, Fatigue. - Medication Reconciliation, Local Pharmacy Hours form. - Follow up: Ravi Finch MD; When: Call to arrange an appointment; Reason: Recheck today's complaints, Continuance of care. - Problem is new. - Symptoms have improved. - Notes: Make sure you drink 12-16 oz of fluid every time you sit down to feed your baby I advise that your take over feeding the baby for tonight so you can get a full night sleep Take Tylenol, as needed, for headache Return to the ED for any further concerns Historical: - Allergies: No known drug Allergies; - Home Meds: 1. levothyroxine 88 mcg oral cap once daily 2. 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 No barriers to communication noted, The patient speaks fluent Croatian, Speaks appropriately for age. - Family history: Not pertinent. - : The pt / caregiver states he / she is not on anticoagulants. Home medication list is obtained from the patient. - Exposure Risk Screening:: None identified. 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 6 in. (167.64 cm) (R); Pain 4/10; 17:33 BP 132 / 88 (auto/); jc4 17:34 Pulse 76 MON; Pulse Ox 96% ; jc4 19:07 BP 158 / 82 (auto/); mlc 19:07 Pulse 74 MON; Pulse Ox 98% ; mlc 19:14 Pulse 64 MON; Pulse Ox 99% ; mlc 20:18 BP 153 / 90; Pulse 70; Resp 18; Temp 96.9(O); Pulse Ox 99% on R/A; Pain 0/10; ronald 16:51 Body Mass Index 47.45 (133.36 kg, 167.64 cm) gr2 MDM: 17:18 RN interventions must not delay CT ordered. le 17:18 Busgirl/Pulse Ox/q 15 min VS ordered. le 17:18 Accucheck ordered. le 17:18 IV Saline Lock ordered. le 17:18 Neuro VS q 15 Minutes ordered. le 17:18 Patient must be on CC stretcher and weighed via bed scale ordered. le 17:18 Rhythm Strip to chart ordered. le 17:19 Basic Metabolic Profile Ordered. EDMS 17:19 CBC with Diff Ordered. EDMS 17:19 Partial Thromboplastin Time Ordered. EDMS 17:19 Prothrombin Time Profile\E\INR Ordered. EDMS 17:19 CT Head Without Contrast Ordered. EDMS 17:20 ECG WITH READING ER PHYS+CARDIAG ordered. EDMS 17:30 Financial registration complete. ks16 17:31 [facility] [place] [place] Payment Agreement was scanned into [employer] and attached to record. ks16 17:31 [facility] Trim Sawyer Order ordered. le 17:34 [facility] Trim Sawyer Order complete. ar3 17:36 CT ANGIO HEAD Ordered. EDMS 18:06 Fingerstick Blood Sugar Ordered. EDMS 18:59 Basic Metabolic Profile Reviewed. le 18:59 CBC with Diff Reviewed. le 18:59 Partial Thromboplastin Time Reviewed. le 18:59 Prothrombin Time Profile\E\INR Reviewed. le 18:59 Fingerstick Blood Sugar Reviewed. le 18:59 NS 0.9% 1000 ml IV at bolus once ordered. le 19:13 [facility]. Nursing Order ordered. le 22:25 T-Sheet-- Draft Copy was scanned into [employer] and attached to record. klr 10/19 11:06 ECG/EKG was scanned into [employer] and attached to record. gb 11:06 Trend VS was scanned into [employer] and attached to record. gb Administered Medications: 10/18 19:14 Drug: NS 0.9% 1000 ml [sodium chloride 0.9 % intravenous solution] Route: IV; Rate: mlc bolus; Site: left antecubital; Signatures: Dispatcher [employer] EDMagy Cary, Reg Reg gb Corinne Lyons,JOSE GARCIA jo3 Ambar Redyd, LABORATORY MILLER LABORATORY MILLER Roxann Parker, METEOROLOGIST LIAISON METEOROLOGIST LIAISON ar3 Corinne Bee RN RN jcTianna Hughes RN RN dsf Sorenson, Kimberly, Reg Reg ks16 Fay Parnell Mandy RN mlc The chart was reviewed and I authenticate all verbal orders and agree with the evaluation and treatment provided.Attachments: 17:31 [facility] [place] [place] Payment Agreement ks16 22:25 T-Sheet-- Draft Copy r 10/19 11:06 ECG/EKG ruthie Chart Complete MTDD
== END 2016-10-18 20:20 | disposition home or self-care (01) ==
LOC: M ED 16:49
DX: O99.89 Other specified diseases and conditions complicating pregnancy, childbirth and the puerperium (principal); R51 Headache; R53.83 Other fatigue; I10 Essential (primary) hypertension; E03.9 Hypothyroidism, unspecified; Z87.442 Personal history of urinary calculi; Z79.52 Long term (current) use of systemic steroids; Z79.899 Other long term (current) drug therapy
CPT/HCPCS: 36415; 70450; 70496; 80048; 85025; 85610; 85730; 93005; 93041; 99285; Q9967

== ENCOUNTER → 2016-12-14 | Day surgery (SDC) | payer OTHER ==
[~2016-12-14] VITALS: Ht 167.6 cm; Wt 127.0 kg
[~2016-12-14] MED LIST changes: +LR 1,000 ML IV SCH; +METO-207 PO
[2016-12-14 11:38] VITALS: BP 177/102
[2016-12-14 11:40] LABS: MEAN CORPUSCULAR HGB CONC 34.2 g/dl (32.0-36.5); MEAN CORPUSCULAR VOLUME 84.8 fl (80.0-96.0); RED CELL DISTRIBUTION WIDTH 14.1 % (11.5-14.5); WHITE BLOOD COUNT 6.4 K/mm3 (4.0-10.0)
[2016-12-14 11:54] LABS: CONTROL LINE HCG INT CTR LINE PRESENT
== END ==
LOC: M SDC 11:04
PROVIDERS: ATTEND Obstetrics & Gynecology
DX: Z30.2 Encounter for sterilization (principal); Z53.20 Procedure and treatment not carried out because of patient's decision for unspecified reasons

== ENCOUNTER → 2017-01-11 | Outpatient (REF) | payer OTHER ==
[~2017-01-11] MED LIST changes: +LABE20TAB PO; +LOSA50TA20 PO; -LR 1,000 ML IV SCH
== END ==
LOC: M LAB REF 16:44
PROVIDERS: ATTEND Internal Medicine Nephrology
DX: E03.9 Hypothyroidism, unspecified (principal)

== ENCOUNTER → 2017-01-27 | Outpatient (CLI) | payer OTHER ==
[2017-01-27 14:45] LABS: ANION GAP 5 MEQ/L (8-16); BLOOD UREA NITROGEN 18 MG/DL (7-18); CALCIUM LEVEL 9.2 MG/DL (8.5-10.1); CARBON DIOXIDE LEVEL 32 MEQ/L (21-32); CHLORIDE LEVEL 104 MEQ/L (98-107); CREATININE FOR GFR 1.05 MG/DL (0.55-1.02); FREE T4 1.03 NG/DL (0.76-1.46); GLOMERULAR FILTRATION RATE > 60.0 (>60); GLUCOSE, FASTING 92 MG/DL (70-105); POTASSIUM SERUM 4.3 MEQ/L (3.5-5.1); SODIUM LEVEL 141 MEQ/L (136-145)
== END ==
LOC: M LAB 13:10
PROVIDERS: ATTEND Family Medicine
DX: E03.9 Hypothyroidism, unspecified (principal); I10 Essential (primary) hypertension

== ENCOUNTER → 2017-03-01 | Outpatient (REF) | payer OTHER | LOC: M SFHCPLAZ 11:30 | PROVIDERS: ATTEND Family Medicine | DX: L91.8 Other hypertrophic disorders of the skin (principal) ==

== ENCOUNTER → 2017-07-12 | Outpatient (CLI) | payer OTHER ==
[~2017-07-12] MED LIST changes: -METO-207 PO; +METO1TAB7 PO
--- NOTE | 2017-07-12 14:39 | REP ---
MRA BRAIN WITHOUT CONTRAST: HISTORY: Polycystic kidney disease. 3D [id number] MR angiography was performed at the level of the [place] of [place]. There is no aneurysm , arteriovenous malformation or atherosclerotic lesion. The major intracranial vessels are patent. The left vertebral artery is dominant. IMPRESSION: Normal MRA brain. Signed by Ravi Avalos MD 07/12/2017 02:46 P
== END ==
LOC: M RAD 13:21
PROVIDERS: ATTEND Internal Medicine Nephrology
DX: Q61.2 Polycystic kidney, adult type (principal); I15.0 Renovascular hypertension; I67.1 Cerebral aneurysm, nonruptured

== ENCOUNTER → 2017-11-03 | Outpatient (CLI) | payer OTHER ==
[2017-11-03 13:25] LABS: BASO % 0.7 % (0.0-1.0); EOS # 0.2 10^3/uL (0.0-0.50); EOS % 3.7 % (0.0-3.0); HEMATOCRIT 33.7 % (36.0-47.0); HEMOGLOBIN 11.2 g/dl (12.0-16.0); IMMATURE GRANULOCYTE % 0.2 % (0-0); LYMPH # 1.4 10^3/uL (1.5-4.5); MEAN CORPUSCULAR HEMOGLOBIN 29.1 pg (27.0-33.0); MEAN CORPUSCULAR HGB CONC 33.2 g/dl (32.0-36.5); MEAN CORPUSCULAR VOLUME 87.5 fl (80.0-96.0); MONO # 0.4 10^3/uL (0.0-0.8); MONO % 6.6 % (0.0-5.0); NEUTROPHILS # 3.6 10^3/uL (1.8-7.7); NEUTROPHILS % 63.8 % (36.0-66.0); PLATELET COUNT, AUTOMATED 197 10^3/uL (150-450); RED BLOOD COUNT 3.85 10^6/uL (4.00-5.40); RED CELL DISTRIBUTION WIDTH 13.5 % (11.5-14.5); WHITE BLOOD COUNT 5.6 10^3/uL (4.0-10.0)
[2017-11-03 13:34] LABS: ALBUMIN 3.2 GM/DL (3.2-5.2); ALKALINE PHOSPHATASE 71 U/L (45-117); ALT/SGPT 15 U/L (12-78); ANION GAP 9 MEQ/L (8-16); AST/SGOT 7 U/L (7-37); BILIRUBIN,TOTAL 0.2 MG/DL (0.2-1.0); BLOOD UREA NITROGEN 12 MG/DL (7-18); CALCIUM LEVEL 8.6 MG/DL (8.5-10.1); CARBON DIOXIDE LEVEL 25 MEQ/L (21-32); CHLORIDE LEVEL 107 MEQ/L (98-107); CREATININE FOR GFR 1.02 MG/DL (0.55-1.30); GLOMERULAR FILTRATION RATE > 60.0 (>60); GLUCOSE, FASTING 104 MG/DL (70-100); POTASSIUM SERUM 3.4 MEQ/L (3.5-5.1); SODIUM LEVEL 141 MEQ/L (136-145); TOTAL PROTEIN 6.4 GM/DL (6.4-8.2); URIC ACID 5.9 MG/DL (2.6-6.0)
[2017-11-03 14:00] LABS: RUBELLA IgG QUALITATIVE IMMUNE (IMMUNE)
[2017-11-03 14:03] LABS: HBsAg Prenatal NEGATIVE (NEGATIVE)
[2017-11-03 14:31] LABS: HIV 1&2 SCREEN CENTAUR NEGATIVE (NEGATIVE)
[2017-11-03 16:24] LABS: CHLAMYDIA DNA AMPLIFICATION NEGATIVE (NEGATIVE); GC DNA AMPLIFICATION NEGATIVE (NEGATIVE)
== END ==
LOC: M SMT 09:55
DX: Z3A.08 8 weeks gestation of pregnancy (principal)
CPT/HCPCS: 84550

== ENCOUNTER → 2018-01-14 | Outpatient (CLI) | payer OTHER | LOC: M RAD 08:52 | DX: Z34.82 Encounter for supervision of other normal pregnancy, second trimester (principal) | CPT/HCPCS: 76811 ==

== ENCOUNTER → 2018-03-01 | Outpatient (CLI) | payer OTHER | LOC: M RAD 17:04 | DX: Z34.82 Encounter for supervision of other normal pregnancy, second trimester (principal); Z36.89 Encounter for other specified antenatal screening; Z3A.25 25 weeks gestation of pregnancy | CPT/HCPCS: 76816 ==

== ENCOUNTER → 2018-03-22 | Outpatient (CLI) | payer OTHER | LOC: M RAD 17:39 | DX: Z34.82 Encounter for supervision of other normal pregnancy, second trimester (principal) | CPT/HCPCS: 76816 ==

== ENCOUNTER → 2018-04-01 | Outpatient (REF) | payer OTHER ==
[2018-04-01 13:49] LABS: CREATININE,RANDOM URINE 62.1 MG/DL
[2018-04-01 13:49] LABS: TOTAL PROTEIN,RANDOM URINE 50.5 MG/DL (0.0-12.0)
== END ==
LOC: M LAB REF 12:50
DX: O10.012 Pre-existing essential hypertension complicating pregnancy, second trimester (principal)

== ENCOUNTER → 2018-04-01 | Outpatient (CLI) | payer OTHER ==
[2018-04-01 13:24] LABS: HEMATOCRIT 28.3 % (36.0-47.0); HEMOGLOBIN 9.5 g/dl (12.0-15.5); MEAN CORPUSCULAR HEMOGLOBIN 30.4 pg (27.0-33.0); MEAN CORPUSCULAR HGB CONC 33.6 g/dl (32.0-36.5); MEAN CORPUSCULAR VOLUME 90.4 fl (80.0-96.0); PLATELET COUNT, AUTOMATED 206 10^3/uL (150-450); RED BLOOD COUNT 3.13 10^6/uL (4.00-5.40); RED CELL DISTRIBUTION WIDTH 13.8 % (11.5-14.5); WHITE BLOOD COUNT 7.8 10^3/uL (4.0-10.0)
[2018-04-01 14:00] LABS: ALT/SGPT 19 U/L (12-78); AST/SGOT 11 U/L (7-37); BILIRUBIN,TOTAL 0.1 MG/DL (0.2-1.0); CREATININE FOR GFR 0.96 MG/DL (0.55-1.30); GLOMERULAR FILTRATION RATE > 60.0 (>60); GLUCOSE CHALLENGE TEST 1 HOUR 136 MG/DL (LESS THAN 140); LDH LACTATE DEHYDROGENASE 151 U/L (84-246); URIC ACID 5.7 MG/DL (2.6-6.0)
== END ==
LOC: M SMT 09:33
DX: O10.012 Pre-existing essential hypertension complicating pregnancy, second trimester (principal)
CPT/HCPCS: 84460

== ENCOUNTER → 2018-04-12 | Outpatient (REF) | payer OTHER ==
[2018-04-12 13:48] LABS: TOTAL PROTEIN,RANDOM URINE 66.7 MG/DL (0.0-12.0)
== END ==
LOC: M LAB REF 13:06
DX: R80.1 Persistent proteinuria, unspecified (principal)

== ENCOUNTER → 2018-04-14 | Outpatient (REF) | payer OTHER ==
[2018-04-14 16:33] LABS: URINE TOTAL PROTEIN 61.8 MG/DL (0-12)
[2018-04-15 08:21] LABS: TOTAL PROTEIN 24 HOUR URINE 1127.8 MG/24HR (50-150); TOTAL VOLUME, URINE 1825 ML
== END ==
LOC: M LAB REF 16:02
DX: O10.013 Pre-existing essential hypertension complicating pregnancy, third trimester (principal); Z3A.00 Weeks of gestation of pregnancy not specified
CPT/HCPCS: 81050

== ENCOUNTER → 2018-04-14 | Outpatient (CLI) | payer OTHER ==
[2018-04-14 08:58] LABS: GLUCOSE, FASTING 106 MG/DL (LESS THAN 95)
[2018-04-14 10:10] LABS: 1 HR GLUCOSE 176 MG/DL (LESS THAN 180)
[2018-04-14 11:12] LABS: 2 HR GLUCOSE 98 MG/DL (LESS THAN 155)
[2018-04-14 12:25] LABS: 3 HR GLUCOSE 70 MG/DL (LESS THAN 140)
== END ==
LOC: M RAD 07:12
DX: O10.012 Pre-existing essential hypertension complicating pregnancy, second trimester (principal); O99.213 Obesity complicating pregnancy, third trimester; Z3A.31 31 weeks gestation of pregnancy
CPT/HCPCS: 76819

== ENCOUNTER → 2018-04-21 | Outpatient (CLI) | payer OTHER | LOC: M RAD 09:07 | DX: O11.3 Pre-existing hypertension with pre-eclampsia, third trimester (principal) | CPT/HCPCS: 76815 ==

== ENCOUNTER 2018-04-22 05:12 | Outpatient (CLI) | payer OTHER ==
[2018-04-22] MEDS ORDERED: ONDANSETRON 4 MG ORAL DISINTEGRATING TAB (Q0162 PER 1MG) PO (06:00)
[2018-04-22] MEDS: LABETALOL 200 MG TAB PO (06:34)
[2018-04-22] MEDS: ACETAMINOPHEN 500 MG TAB PO (06:38)
[2018-04-22 08:04] LABS: HEMATOCRIT 27.6 % (36.0-47.0); HEMOGLOBIN 9.3 g/dl (12.0-15.5); MEAN CORPUSCULAR HEMOGLOBIN 30.2 pg (27.0-33.0); MEAN CORPUSCULAR HGB CONC 33.7 g/dl (32.0-36.5); MEAN CORPUSCULAR VOLUME 89.6 fl (80.0-96.0); PLATELET COUNT, AUTOMATED 215 10^3/uL (150-450); RED BLOOD COUNT 3.08 10^6/uL (4.00-5.40); RED CELL DISTRIBUTION WIDTH 13.4 % (11.5-14.5); WHITE BLOOD COUNT 9.4 10^3/uL (4.0-10.0)
[2018-04-22 08:08] LABS: CREATININE,RANDOM URINE 53.1 MG/DL
[2018-04-22 08:08] LABS: TOTAL PROTEIN,RANDOM URINE 80.2 MG/DL (0.0-12.0)
[2018-04-22 08:40] LABS: ALT/SGPT 18 U/L (12-78); AST/SGOT 8 U/L (7-37); BILIRUBIN,TOTAL 0.2 MG/DL (0.2-1.0); CREATININE FOR GFR 0.86 MG/DL (0.55-1.30); GLOMERULAR FILTRATION RATE > 60.0 (>60); LDH LACTATE DEHYDROGENASE 145 U/L (84-246); URIC ACID 5.2 MG/DL (2.6-6.0)
== END 2018-04-22 11:17 | disposition home or self-care (01) ==
LOC: M LDO 05:12
DX: O21.2 Late vomiting of pregnancy (principal); O99.89 Other specified diseases and conditions complicating pregnancy, childbirth and the puerperium; R51 Headache; O10.03 Pre-existing essential hypertension complicating the puerperium; O99.283 Endocrine, nutritional and metabolic diseases complicating pregnancy, third trimester; E03.9 Hypothyroidism, unspecified; Z3A.32 32 weeks gestation of pregnancy
CPT/HCPCS: 59025

== ENCOUNTER 2018-05-05 09:49 | Inpatient (IN) | payer OTHER ==
[2018-05-05 11:37] LABS: HEMATOCRIT 26.9 % (36.0-47.0); HEMOGLOBIN 9.2 g/dl (12.0-15.5); MEAN CORPUSCULAR HEMOGLOBIN 31.2 pg (27.0-33.0); MEAN CORPUSCULAR HGB CONC 34.2 g/dl (32.0-36.5); MEAN CORPUSCULAR VOLUME 91.2 fl (80.0-96.0); PLATELET COUNT, AUTOMATED 203 10^3/uL (150-450); RED BLOOD COUNT 2.95 10^6/uL (4.00-5.40); RED CELL DISTRIBUTION WIDTH 14.1 % (11.5-14.5); WHITE BLOOD COUNT 7.7 10^3/uL (4.0-10.0)
[2018-05-05 12:11] LABS: ALT/SGPT 18 U/L (12-78); AST/SGOT 6 U/L (7-37); BILIRUBIN,TOTAL 0.2 MG/DL (0.2-1.0); CREATININE FOR GFR 0.99 MG/DL (0.55-1.30); GLOMERULAR FILTRATION RATE > 60.0 (>60); LDH LACTATE DEHYDROGENASE 165 U/L (84-246); URIC ACID 6.5 MG/DL (2.6-6.0)
[2018-05-05] MEDS ORDERED: PENICILLIN G POTASSIUM IV 5 MU in D5W MINI-BAG PLUS 100 ML IV (13:28)
[2018-05-05] MEDS: miSOPROStol 50 MCG 1/2 TAB (S0191) PO ×3 (14:00→22:00)
[2018-05-05 15:40] LABS: TOTAL PROTEIN,RANDOM URINE 98.4 MG/DL (0.0-12.0)
[2018-05-05] MEDS: LABETALOL 200 MG TAB PO ×2 (16:11→20:40)
[2018-05-05] MEDS ORDERED: PENICILLIN G POTASSIUM IV 2.5 MU in APPROPRIATE DILUENT 1 EA IV (17:30)
[2018-05-05] MEDS ORDERED: DOCUSATE SODIUM 100 MG CAP PO (18:30)
[2018-05-05] MEDS ORDERED: ACETAMINOPHEN 500 MG TAB As Ordered (20:31)
[2018-05-05] MEDS: METHYLDOPA 250 MG TAB PO (20:40)
[2018-05-05] MEDS: ACETAMINOPHEN 500 MG TAB PO (20:41)
[2018-05-06] MEDS: PROMETHAZINE INJ 25 MG/ML VIAL (J2550) IV (00:15)
[2018-05-06] MEDS: BUTORPHANOL 2 MG/ML INJ (J0595) IV (00:15)
[2018-05-06] MEDS ORDERED: BUTORPHANOL 2 MG/ML INJ (J0595) As Ordered (00:17)
[2018-05-06] MEDS ORDERED: PENICILLIN G POTASSIUM 5 MU VIAL As Ordered (00:36)
[2018-05-06] MEDS: PENICILLIN G POTASSIUM IV 5 MU in D5W MINI-BAG PLUS 100 ML IV (00:45)
[2018-05-06] MEDS ORDERED: OXYTOCIN 30 UNITS IN 0.9% NaCl 500ML IV BAG (J2590) As Ordered ×2 (04:02→04:05)
[2018-05-06] MEDS ORDERED: PENICILLIN G POTASSIUM IV 2.5 MU in APPROPRIATE DILUENT 1 EA IV (05:00)
[2018-05-06] MEDS: OXYTOCIN DRIP 30 UNITS in APPROPRIATE DILUENT 1 EA IV (05:42)
[2018-05-06] MEDS ORDERED: MOM 30ML SUSPENSION UDC PO (05:45)
[2018-05-06] MEDS ORDERED: MEASLES,MUMPS,RUBELLA VACCINE INJ (MMR-II) (90707) SC (05:45)
[2018-05-06] MEDS ORDERED: ANUSOL HC CREAM 30GM TOP (05:45)
[2018-05-06] MEDS ORDERED: RHOGAM 300 MCG (1500 IU) INJ (J2790) IM (05:45)
[2018-05-06] MEDS ORDERED: METHYLERGONOVINE MALEATE 0.2 MG TAB PO (05:45)
[2018-05-06] MEDS ORDERED: DIBUCAINE 1% OINTMENT 30GM TOP (05:45)
[2018-05-06] MEDS: LABETALOL 200 MG TAB PO ×3 (08:28→21:12)
[2018-05-06] MEDS: PRENATAL VITAMINS CHEWABLE TABLET PO (08:28)
[2018-05-06] MEDS: IBUPROFEN 800 MG TAB PO ×2 (08:29→15:58)
[2018-05-06] MEDS: DOCUSATE SODIUM 100 MG CAP PO (08:46)
[2018-05-06] MEDS: METHYLDOPA 250 MG TAB PO ×2 (08:49→21:12)
[2018-05-06] MEDS: ACETAMINOPHEN 500 MG TAB PO (15:59)
[2018-05-07] MEDS: PRENATAL VITAMINS CHEWABLE TABLET PO (07:21)
[2018-05-07] MEDS: METHYLDOPA 250 MG TAB PO (07:24)
[2018-05-07] MEDS: LABETALOL 200 MG TAB PO ×3 (07:26→20:27)
[2018-05-07] MEDS: IBUPROFEN 800 MG TAB PO ×2 (07:27→20:28)
[2018-05-07] MEDS: NIFEdipine 30 MG XL TAB PO (10:05)
[2018-05-07] MEDS: ACETAMINOPHEN 500 MG TAB PO (15:50)
[2018-05-07] MEDS: DOCUSATE SODIUM 100 MG CAP PO (21:13)
[2018-05-08] MEDS: ACETAMINOPHEN 500 MG TAB PO (07:22)
[2018-05-08] MEDS: NIFEdipine 30 MG XL TAB PO (09:11)
[2018-05-08] MEDS: LABETALOL 200 MG TAB PO (09:11)
[2018-05-08] MEDS: PRENATAL VITAMINS CHEWABLE TABLET PO (09:11)
== END 2018-05-08 12:05 | disposition home or self-care (01) | DRG 560 ==
LOC: M LDO 09:49 → M OBS 05-06 05:48 → M LDI 13:25
PROC: 3E0DXGC Introduction of Other Therapeutic Substance into Mouth and Pharynx, External Approach (ICD-10-PCS; 2018-05-05)
PROC: 10E0XZZ Delivery of Products of Conception, External Approach (ICD-10-PCS; principal; 2018-05-06)
DX: O11.4 Pre-existing hypertension with pre-eclampsia, complicating childbirth (principal); O41.03X0 Oligohydramnios, third trimester, not applicable or unspecified; Z37.0 Single live birth; E03.9 Hypothyroidism, unspecified; O99.284 Endocrine, nutritional and metabolic diseases complicating childbirth; Z79.899 Other long term (current) drug therapy; Z3A.34 34 weeks gestation of pregnancy

== ENCOUNTER 2018-09-07 16:32 | Emergency (ER) | payer OTHER ==
[2018-09-07] MEDS: PERCOCET 5MG/325MG TAB PO (18:04)
[2018-09-07] MEDS: NIFEdipine 30 MG XL TAB PO (18:10)
== END 2018-09-07 19:12 | disposition home or self-care (01) ==
LOC: M ED 16:32
DX: S90.32XA Contusion of left foot, initial encounter (principal); W10.8XXA Fall (on) (from) other stairs and steps, initial encounter; Y92.018 Other place in single-family (private) house as the place of occurrence of the external cause; I10 Essential (primary) hypertension; Q61.3 Polycystic kidney, unspecified; Z79.899 Other long term (current) drug therapy; Z79.890 Hormone replacement therapy
CPT/HCPCS: 73630

== ENCOUNTER → 2018-09-09 | Outpatient (REF) | payer OTHER ==
[~2018-09-09] MED LIST changes: -ACET50TA PO; +IBUP-1114 PO; -LOSA50TA20 PO; +LOSA50TA73 PO; +MAPA500T17 PO; +METHY25TA PO; +PERC5TAB12 PO; +PROC30TA PO
[2018-09-09 14:32] LABS: FREE T4 0.96 NG/DL (0.76-1.46); THYROID STIMULATING HORMONE 3.25 uIU/ML (0.358-3.740)
== END ==
LOC: M LAB REF 13:03
PROVIDERS: ATTEND Internal Medicine Nephrology
DX: E03.9 Hypothyroidism, unspecified (principal)

== ENCOUNTER → 2018-10-24 | Outpatient (CLI) | payer OTHER ==
[~2018-10-24] MED LIST changes: -LOSA50TA73 PO; +LOSA50TA88 PO; -MAPA500T17 PO; +MAPA500T2 PO
--- NOTE | 2018-10-24 08:00 | REP ---
Clinical: Dating and viability. Technique: Transabdominal and transvaginal first trimester obstetrical ultrasound with color Doppler evaluation. Findings: Heterogeneous anteverted uterus measures 12.1 x 5.1 x 7.3 cm. Decidual reaction is noted and the endometrial complex measures 24 mm thickness. An empty gestational sac is identified without yolk sac or pole. Mean sac diameter of 3.7 mm corresponds to 5 weeks 1 day gestational age. A small subchorionic hemorrhage is identified adjacent to the gestational sac measuring 7 x 7 x 3 mm. Bilateral maternal ovaries are normal in appearance and vascularity without torsion. Right ovary measures 4.7 x 1.9 x 2.2 cm; RI 0.66. Left ovary measures 6.0 x 3.3 x 3.8 cm with 2.5 cm hemorrhagic cyst likely corpus luteum; RI 0.65. No pelvic fluid or adnexal mass lesion. Impression: 1. Empty gestational sac with mean sac diameter corresponding to 5 weeks 1 day gestational age. Differential diagnosis includes missed versus early . Correlation with serial HCG levels recommended. 2. Small subchorionic hemorrhage identified. Electronically Signed by Andrea Jackson MD 10/24/2018 07:52 A
== END ==
LOC: M RAD 06:55
PROVIDERS: ATTEND Nurse Practitioner Family
DX: Z32.01 Encounter for pregnancy test, result positive (principal); O20.9 Hemorrhage in early pregnancy, unspecified; Z3A.01 Less than 8 weeks gestation of pregnancy

== ENCOUNTER → 2018-10-28 | Outpatient (CLI) | payer OTHER ==
--- NOTE | 2018-10-28 10:13 | REP ---
Clinical: Dating and viability. Technique: Transabdominal and transvaginal first trimester obstetrical ultrasound with color Doppler evaluation. Findings: Heterogeneous uterus measures 10.0 x 5.7 x 7.1 cm. Fundal fibroid identified measuring 2.0 x 1.8 x 1.7 cm. There is a presumed gestational sac with mean sac diameter of 8.4 mm corresponding to 5 weeks 5 days gestational age. No discernible yolk sac or pole identified. A small subchorionic hemorrhage is also appreciated measuring 9 x 5 x 3 mm superior to the presumed gestational sac. Bilateral maternal ovaries are normal in appearance and vascularity without torsion. Right ovary measures 2.3 x 1.6 x 2.5 cm with 1.3 cm likely corpus luteal cyst; RI 0.61. Left ovary measures 5.5 x 3.9 x 2.9 cm with 1.5 cm cyst; RI 0.46. No pelvic free fluid or adnexal mass lesion. Impression: 1. Limited examination due to maternal body habitus suggests early gestational sac with small subchorionic hemorrhage. Correlation with serial HCG levels and repeat ultrasound may be warranted. Differential diagnosis includes spontaneous and less likely ectopic . 2. 2 cm subserosal/intramural fundal fibroid. Electronically Signed by Andrea Jackson MD 10/28/2018 10:05 A
== END ==
LOC: M RAD 08:23
PROVIDERS: ATTEND Nurse Practitioner Family
DX: O20.8 Other hemorrhage in early pregnancy (principal); O34.10 Maternal care for benign tumor of corpus uteri, unspecified trimester; D25.9 Leiomyoma of uterus, unspecified; Z3A.00 Weeks of gestation of pregnancy not specified

== ENCOUNTER → 2018-10-31 | Outpatient (CLI) | payer OTHER ==
--- NOTE | 2018-10-31 08:20 | REP ---
Emergency first trimester obstetric sonography: History: Supervision of . Findings: Transabdominal and transvaginal scanning are performed. There is an intrauterine gestational sac containing a yolk sac but no embryonic pole. By mean sac size diameter of 13.6 mm. This would correspond with 9-axxt-3-day gestational age estimate. The yolk sac measures 4 mm. No free fluid is seen. A normal right ovary is observed measuring 2.3 x 1.6 x 1.4 cm. Left ovary dimensions are 4.6 x 3.3 x 3.2 cm. There are multiple follicles in the left ovary occluding a 2.3 x 2.2 x 1.8 cm cyst which could be a corpus luteum. Uterine dimensions are 10.3 x 5.7 x 7.5 cm. Impression: There is an intrauterine gestation containing a yolk sac but no identifiable embryonic pole. Clinical and or sonographic followup recommended. 6 weeks 1 day by mean sac size diameter. Electronically Signed by Julius Alanis MD 10/31/2018 09:19 A
== END ==
LOC: M RAD 06:54
PROVIDERS: ATTEND Nurse Practitioner Family
DX: Z32.01 Encounter for pregnancy test, result positive (principal)

== ENCOUNTER → 2018-10-31 | Outpatient (CLI) | payer OTHER | LOC: M LAB 08:00 | PROVIDERS: ATTEND Nurse Practitioner Family | DX: Z32.01 Encounter for pregnancy test, result positive (principal) ==

== ENCOUNTER → 2018-11-13 | Outpatient (REF) | payer OTHER ==
[2018-11-13 16:55] LABS: INFLUENZA A AMPLIFICATION POSITIVE (NEGATIVE); INFLUENZA B AMPLIFICATION NEGATIVE (NEGATIVE)
== END ==
LOC: M LAB REF 09:51
PROVIDERS: ATTEND Physician Assistant Medical
DX: B34.9 Viral infection, unspecified (principal)

== ENCOUNTER → 2019-05-01 | Outpatient (CLI) | payer OTHER ==
[2019-05-01 08:39] LABS: ALBUMIN 3.2 GM/DL (3.2-5.2); BILIRUBIN,TOTAL 0.2 MG/DL (0.2-1.0); CALCIUM LEVEL 8.8 MG/DL (8.5-10.1); CHOLESTEROL RISK RATIO 4.631 (<5); CREATININE FOR GFR 1.32 MG/DL (0.55-1.30); FREE T4 1.33 NG/DL (0.76-1.46); GLOMERULAR FILTRATION RATE 48.8 (>60); THYROID STIMULATING HORMONE 0.008 uIU/ML (0.358-3.740); TOTAL PROTEIN 6.9 GM/DL (6.4-8.2)
[2019-05-01 10:31] LABS: HEMOGLOBIN A1c 5.5 %
== END ==
LOC: M LAB 07:19
PROVIDERS: ATTEND Student in an Organized Health Care Education/Training Program
DX: E03.9 Hypothyroidism, unspecified (principal); I10 Essential (primary) hypertension; Z13.220 Encounter for screening for lipoid disorders; Z13.1 Encounter for screening for diabetes mellitus; R10.13 Epigastric pain

== ENCOUNTER → 2019-08-15 | Outpatient (REF) | payer OTHER ==
[2019-08-15 19:43] LABS: APPEARANCE, URINE CLEAR (CLEAR); BACTERIA, URINE AUTO NEGATIVE (NEGATIVE); BILIRUBIN, URINE AUTO NEGATIVE (NEGATIVE); BLOOD, URINE BLOOD NEGATIVE (NEGATIVE); COLOR, URINE STRAW (YELLOW); GLUCOSE, URINE (UA) AUTO NEGATIVE (NEGATIVE); KETONE, URINE AUTO NEGATIVE (NEGATIVE); LEUKOCYTE ESTERASE, URINE AUTO NEGATIVE (NEGATIVE); MUCUS, URINE SMALL (NEGATIVE); NITRITE, URINE AUTO NEGATIVE (NEGATIVE); PROTEIN, URINE AUTO 1+ mg/dL (NEGATIVE); RBC, URINE AUTO 1 /HPF (0-3); SPECIFIC GRAVITY URINE AUTO 1.012 (1.002-1.035); SQUAMOUS EPITHELIAL CELL UR AU 1 /HPF (0-6); UROBILINOGEN, URINE AUTO 0.2 mg/dL (0.0-2.0); WBC, URINE AUTO 1 /HPF (0-3)
[2019-08-15 23:07] LABS: CHLAMYDIA DNA AMPLIFICATION NEGATIVE (NEGATIVE); GC DNA AMPLIFICATION NEGATIVE (NEGATIVE)
== END ==
LOC: M LAB REF 16:39
PROVIDERS: ATTEND Physician Assistant Medical
DX: Z11.3 Encounter for screening for infections with a predominantly sexual mode of transmission (principal); N39.0 Urinary tract infection, site not specified

== ENCOUNTER 2019-09-17 12:17 | Emergency (ER) | payer OTHER ==
[~2019-09-17] VITALS: Ht 167.6 cm; Wt 145.4 kg
[2019-09-17] MEDS ORDERED: OMEP-218 PO (12:26)
[2019-09-17] MEDS ORDERED: LOSA100T50 PO (12:26)
[2019-09-17] MEDS ORDERED: PARO20TA3 PO (12:26)
[2019-09-17] MEDS ORDERED: ATEN50TA2 PO (12:26)
[2019-09-17 12:58] LABS: BASO % 0.5 % (0.0-1.0); EOS # 0.4 10^3/uL (0.0-0.5); EOS % 5.7 % (0.0-3.0); HEMATOCRIT 38.9 % (36.0-47.0); HEMOGLOBIN 12.7 g/dl (12.0-15.5); LYMPH # 2.1 10^3/uL (1.5-5.0); LYMPH % 27.8 % (24.0-44.0); MEAN CORPUSCULAR HEMOGLOBIN 29.7 pg (27.0-33.0); MEAN CORPUSCULAR HGB CONC 32.6 g/dl (32.0-36.5); MEAN CORPUSCULAR VOLUME 91.1 fl (80.0-96.0); MONO # 0.5 10^3/uL (0.0-0.8); MONO % 6.2 % (0.0-5.0); NEUTROPHILS # 4.4 10^3/uL (1.5-8.5); NEUTROPHILS % 59.5 % (36.0-66.0); PLATELET COUNT, AUTOMATED 249 10^3/uL (150-450); RED BLOOD COUNT 4.27 10^6/uL (4.00-5.40); WHITE BLOOD COUNT 7.4 10^3/uL (4.0-10.0)
[2019-09-17 13:26] LABS: ALBUMIN 3.2 GM/DL (3.2-5.2); ALT/SGPT 21 U/L (12-78); BILIRUBIN,DIRECT < 0.1 MG/DL (0.0-0.2); BILIRUBIN,TOTAL 0.2 MG/DL (0.2-1.0); NT-PRO BNP 232 PG/ML (<125); TOTAL PROTEIN 6.8 GM/DL (6.4-8.2)
[2019-09-17 15:27] VITALS: BP 159/99
--- NOTE | 2019-09-18 02:18 | REP ---
CHEST: REASON: Dyspnea. FINDINGS: The superior mediastinal structures are midline. The cardiac silhouette is unremarkable in size, shape, and position. The diaphragmatic surfaces of the lungs are regular, and the costophrenic angles are clear. The pulmonary tapia are clear. The imaged osseous structures are intact. IMPRESSION: There is no acute cardiopulmonary disease. Unreviewed
== END 2019-09-17 15:46 | disposition home or self-care (01) ==
LOC: M ED 12:17
DX: R80.9 Proteinuria, unspecified (principal); R22.43 Localized swelling, mass and lump, lower limb, bilateral; I10 Essential (primary) hypertension; Q61.3 Polycystic kidney, unspecified; Z79.1 Long term (current) use of non-steroidal anti-inflammatories (NSAID); Z79.891 Long term (current) use of opiate analgesic; Z79.899 Other long term (current) drug therapy

== ENCOUNTER 2019-11-05 08:30 | Emergency (ER) | payer OTHER ==
[~2019-11-05] VITALS: Ht 167.6 cm; Wt 158.8 kg
[~2019-11-05 08:30] MED LIST changes: +ATEN50TA2 PO; +LOSA100T50 PO; +OMEP-218 PO; +PARO20TA3 PO
[2019-11-05] MEDS ORDERED: PENICILLIN V POTASSIUM 500 MG TAB PO ONE (09:30)
[2019-11-05] MEDS ORDERED: PENI500T PO (10:01)
[2019-11-05 10:28] VITALS: BP 146/96
== END 2019-11-05 11:10 | disposition home or self-care (01) ==
LOC: M ED 08:30
DX: K04.7 Periapical abscess without sinus (principal); E03.9 Hypothyroidism, unspecified; E78.5 Hyperlipidemia, unspecified; I10 Essential (primary) hypertension; J45.909 Unspecified asthma, uncomplicated; Z79.1 Long term (current) use of non-steroidal anti-inflammatories (NSAID); Z79.2 Long term (current) use of antibiotics; Z79.899 Other long term (current) drug therapy

== ENCOUNTER → 2019-12-31 | Outpatient (REF) | payer OTHER ==
[~2019-12-31] MED LIST changes: +PENI500T PO
[2019-12-31 13:17] LABS: APPEARANCE, URINE CLEAR (CLEAR); BACTERIA, URINE AUTO 1+ (NEGATIVE); BILIRUBIN, URINE AUTO NEGATIVE (NEGATIVE); BLOOD, URINE BLOOD NEGATIVE (NEGATIVE); COLOR, URINE AMBER (YELLOW); GLUCOSE, URINE (UA) AUTO NEGATIVE (NEGATIVE); KETONE, URINE AUTO NEGATIVE (NEGATIVE); LEUKOCYTE ESTERASE, URINE AUTO NEGATIVE (NEGATIVE); NITRITE, URINE AUTO POSITIVE (NEGATIVE); PROTEIN, URINE AUTO 2+ mg/dL (NEGATIVE); RBC, URINE AUTO 0 /HPF (0-3); SPECIFIC GRAVITY URINE AUTO 1.011 (1.002-1.035); SQUAMOUS EPITHELIAL CELL UR AU 0 /HPF (0-6); WBC, URINE AUTO 1 /HPF (0-3)
== END ==
LOC: M LAB REF 09:00
PROVIDERS: ATTEND Physician Assistant Medical
DX: N39.0 Urinary tract infection, site not specified (principal)

== ENCOUNTER 2020-06-24 20:33 | Emergency (ER) | payer OTHER ==
[~2020-06-24] VITALS: Ht 167.6 cm; Wt 157.4 kg
[2020-06-24] MEDS ORDERED: ONDANSETRON 4 MG ORAL DISINTEGRATING TAB PO ONE (22:15)
[2020-06-24 22:52] LABS: BASO % 0.5 % (0.0-1.0); EOS # 0.1 10^3/uL (0.0-0.5); EOS % 1.9 % (0.0-3.0); HEMATOCRIT 40.1 % (36.0-47.0); HEMOGLOBIN 13.5 g/dl (12.0-15.5); LYMPH # 1.7 10^3/uL (1.5-5.0); LYMPH % 22.7 % (24.0-44.0); MEAN CORPUSCULAR HEMOGLOBIN 30.4 pg (27.0-33.0); MEAN CORPUSCULAR HGB CONC 33.7 g/dl (32.0-36.5); MEAN CORPUSCULAR VOLUME 90.3 fl (80.0-96.0); MONO # 0.5 10^3/uL (0.0-0.8); MONO % 6.2 % (0.0-5.0); NEUTROPHILS # 5.1 10^3/uL (1.5-8.5); NEUTROPHILS % 68.4 % (36.0-66.0); PLATELET COUNT, AUTOMATED 221 10^3/uL (150-450); RED BLOOD COUNT 4.44 10^6/uL (4.00-5.40); WHITE BLOOD COUNT 7.5 10^3/uL (4.0-10.0)
[2020-06-24 23:09] LABS: APPEARANCE, URINE CLEAR (CLEAR); BACTERIA, URINE AUTO 1+ (NEGATIVE); BILIRUBIN, URINE AUTO NEGATIVE (NEGATIVE); BLOOD, URINE BLOOD NEGATIVE (NEGATIVE); COLOR, URINE YELLOW (YELLOW); GLUCOSE, URINE (UA) AUTO NEGATIVE (NEGATIVE); KETONE, URINE AUTO NEGATIVE (NEGATIVE); LEUKOCYTE ESTERASE, URINE AUTO NEGATIVE (NEGATIVE); MUCUS, URINE SMALL (NEGATIVE); NITRITE, URINE AUTO NEGATIVE (NEGATIVE); PROTEIN, URINE AUTO 2+ mg/dL (NEGATIVE); RBC, URINE AUTO 2 /HPF (0-3); SPECIFIC GRAVITY URINE AUTO 1.013 (1.002-1.035); SQUAMOUS EPITHELIAL CELL UR AU 1 /HPF (0-6); TRANSITIONAL EPITHELIAL AUTO <1 /HPF; UROBILINOGEN, URINE AUTO 0.2 mg/dL (0.0-2.0); WBC, URINE AUTO 2 /HPF (0-3)
[2020-06-24 23:12] LABS: ALBUMIN 3.5 GM/DL (3.2-5.2); BILIRUBIN,DIRECT 0.1 MG/DL (0.0-0.2); BILIRUBIN,TOTAL 0.2 MG/DL (0.2-1.0); CALCIUM LEVEL 9.4 MG/DL (8.5-10.1); CREATININE FOR GFR 1.56 MG/DL (0.55-1.30); TOTAL PROTEIN 7.3 GM/DL (6.4-8.2)
[2020-06-24] MEDS ORDERED: ONDA4TAB6 PO (23:59)
[2020-06-25 00:19] VITALS: BP 140/68
== END 2020-06-25 00:20 | disposition home or self-care (01) ==
LOC: M ED 20:33
DX: Q61.3 Polycystic kidney, unspecified (principal); R11.0 Nausea; E03.9 Hypothyroidism, unspecified; E78.5 Hyperlipidemia, unspecified; I10 Essential (primary) hypertension; J45.909 Unspecified asthma, uncomplicated; Z79.1 Long term (current) use of non-steroidal anti-inflammatories (NSAID); Z79.2 Long term (current) use of antibiotics; Z79.899 Other long term (current) drug therapy
CPT/HCPCS: 36415; 80048; 80076; 81001; 83690; 84702; 85025; 99284; Q0162

== ENCOUNTER 2020-10-18 14:54 | Emergency (ER) | payer OTHER ==
[~2020-10-18] VITALS: Ht 167.6 cm; Wt 146.5 kg
[~2020-10-18 14:54] MED LIST changes: +ONDA4TAB6 PO
[2020-10-18] MEDS ORDERED: MUCI600T31 PO (16:37)
[2020-10-18] MEDS ORDERED: PRED10TA2 PO (16:37)
[2020-10-18] MEDS ORDERED: TESS100C PO (16:37)
[2020-10-18] MEDS ORDERED: BENZONATATE 100 MG CAP PO ONE (16:45)
[2020-10-18] MEDS ORDERED: predniSONE 20 MG TAB PO ONE (16:45)
[2020-10-18 16:58] VITALS: BP 144/93
== END 2020-10-18 17:00 | disposition home or self-care (01) ==
LOC: M ED 14:54
DX: U07.1 COVID-19 (principal); J45.901 Unspecified asthma with (acute) exacerbation; I10 Essential (primary) hypertension; F33.9 Major depressive disorder, recurrent, unspecified; F41.9 Anxiety disorder, unspecified; Q61.3 Polycystic kidney, unspecified; Z79.899 Other long term (current) drug therapy

== ENCOUNTER 2020-12-22 23:43 | Emergency (ER) | payer OTHER ==
[~2020-12-22] VITALS: Ht 167.6 cm; Wt 152.6 kg
[~2020-12-22 23:43] MED LIST changes: +MUCI600T31 PO; +PRED10TA2 PO; +TESS100C PO
[2020-12-22 23:44] VITALS: BP 170/98
== END 2020-12-23 05:28 | disposition left against medical advice (07) ==
LOC: M ED 23:43
DX: Z53.21 Procedure and treatment not carried out due to patient leaving prior to being seen by health care provider (principal)

== ENCOUNTER 2021-04-18 16:19 | Emergency (ER) | payer OTHER ==
[~2021-04-18] VITALS: Ht 167.6 cm; Wt 136.4 kg
[2021-04-18 16:19] VITALS: BP 136/90
== END 2021-04-18 21:42 | disposition left against medical advice (07) ==
LOC: M ED 16:19
DX: Z53.29 Procedure and treatment not carried out because of patient's decision for other reasons (principal)

== ENCOUNTER → 2022-03-17 | Outpatient (REF) | payer OTHER ==
[~2022-03-17] MED LIST changes: +LOSA100T45 PO; -LOSA100T50 PO; +LOSA50TA28 PO; -LOSA50TA88 PO; +OMEP-173 PO; -OMEP-218 PO
[2022-03-17 21:38] LABS: APPEARANCE, URINE CLEAR (CLEAR); BACTERIA, URINE AUTO NEGATIVE (NEGATIVE); BILIRUBIN, URINE AUTO NEGATIVE (NEGATIVE); BLOOD, URINE BLOOD NEGATIVE (NEGATIVE); COLOR, URINE STRAW (YELLOW); GLUCOSE, URINE (UA) AUTO NEGATIVE (NEGATIVE); KETONE, URINE AUTO NEGATIVE (NEGATIVE); LEUKOCYTE ESTERASE, URINE AUTO NEGATIVE (NEGATIVE); NITRITE, URINE AUTO NEGATIVE (NEGATIVE); PROTEIN, URINE AUTO 2+ mg/dL (NEGATIVE); RBC, URINE AUTO 1 /HPF (0-3); SPECIFIC GRAVITY URINE AUTO 1.012 (1.002-1.035); SQUAMOUS EPITHELIAL CELL UR AU 1 /HPF (0-6); UROBILINOGEN, URINE AUTO 0.2 mg/dL (0.0-2.0); WBC, URINE AUTO 10 /HPF (0-3)
== END ==
LOC: M LAB REF 20:57
PROVIDERS: ATTEND Physician Assistant Medical
DX: N39.0 Urinary tract infection, site not specified (principal)

== ENCOUNTER → 2022-08-27 | Outpatient (REF) | payer OTHER ==
[2022-08-27 21:45] LABS: APPEARANCE, URINE MANUAL HAZY (CLEAR); COLOR, URINE MANUAL LT YELLOW (YELLOW)
[2022-08-27 21:47] LABS: BILIRUBIN, URINE MANUAL NEGATIVE (NEGATIVE); BLOOD URINE MANUAL POSITIVE (NEGATIVE); GLUCOSE, URINE (UA) MANUAL NEGATIVE (NEGATIVE); KETONE, URINE MANUAL NEGATIVE (NEGATIVE); LEUKOCYTE ESTERASE, URINE MAN POSITIVE (NEGATIVE); NITRITE, URINE MANUAL NEGATIVE (NEGATIVE); PROTEIN, URINE MANUAL 2+ mg/dL (NEGATIVE); SPECIFIC GRAVITY,URINE MANUAL 1.015 (1.002-1.035); UROBILINOGEN, URINE MANUAL NORMAL (NORMAL)
[2022-08-27 22:11] LABS: RBC, URINE 15-20 /hpf (0-3)
[2022-08-27 22:12] LABS: BACTERIA, URINE LARGE AMOUNT; HYALINE CAST, URINE NONE SEEN /lpf (0-1); SQUAMOUS EPITHELIAL CELL URINE LARGE AMOUNT /hpf (SMALL AMT)
== END ==
LOC: M LAB REF 21:39
PROVIDERS: ATTEND Physician Assistant
DX: N39.0 Urinary tract infection, site not specified (principal)

== ENCOUNTER → 2022-12-05 | Outpatient (REF) | payer OTHER ==
[2022-12-05 17:25] LABS: APPEARANCE, URINE MANUAL CLEAR (CLEAR); COLOR, URINE MANUAL LT YELLOW (YELLOW)
[2022-12-05 17:26] LABS: BILIRUBIN, URINE MANUAL NEGATIVE (NEGATIVE); BLOOD URINE MANUAL NEGATIVE (NEGATIVE); GLUCOSE, URINE (UA) MANUAL NEGATIVE (NEGATIVE); KETONE, URINE MANUAL NEGATIVE (NEGATIVE); LEUKOCYTE ESTERASE, URINE MAN NEGATIVE (NEGATIVE); NITRITE, URINE MANUAL NEGATIVE (NEGATIVE); PROTEIN, URINE MANUAL 2+ mg/dL (NEGATIVE); UROBILINOGEN, URINE MANUAL NORMAL (NORMAL)
[2022-12-05 17:41] LABS: RENAL EPITHELIAL CELLS, URINE SMALL AMOUNT /hpf; SQUAMOUS EPITHELIAL CELL URINE MOD AMOUNT /hpf (SMALL AMT); TRANSITIONAL EPI CELLS, URINE MOD AMOUNT /hpf
[2022-12-05 17:43] LABS: BACTERIA, URINE SMALL AMOUNT; HYALINE CAST, URINE NONE SEEN /lpf (0-1)
[2022-12-05 17:44] LABS: MUCUS, URINE SMALL AMOUNT (NEGATIVE)
== END ==
LOC: M LAB REF 17:16
PROVIDERS: ATTEND Physician Assistant
DX: N39.0 Urinary tract infection, site not specified (principal)

== ENCOUNTER 2023-01-10 20:37 | Emergency (ER) | payer OTHER ==
[~2023-01-10] VITALS: Ht 167.6 cm; Wt 132.1 kg
[2023-01-10 22:34] LABS: BASO % 0.6 % (0.0-1.0); EOS # 0.1 10^3/uL (0.0-0.5); EOS % 1.3 % (0.0-3.0); HEMATOCRIT 41.1 % (36.0-47.0); HEMOGLOBIN 13.7 g/dl (12.0-15.5); LYMPH # 1.2 10^3/uL (1.5-5.0); LYMPH % 16.7 % (24.0-44.0); MEAN CORPUSCULAR HEMOGLOBIN 30.2 pg (27.0-33.0); MEAN CORPUSCULAR HGB CONC 33.3 g/dl (32.0-36.5); MEAN CORPUSCULAR VOLUME 90.7 fl (80.0-96.0); MONO # 0.4 10^3/uL (0.0-0.8); MONO % 5.4 % (2.0-8.0); NEUTROPHILS # 5.5 10^3/uL (1.5-8.5); NEUTROPHILS % 75.7 % (36.0-66.0); PLATELET COUNT, AUTOMATED 223 10^3/uL (150-450); RED BLOOD COUNT 4.53 10^6/uL (4.00-5.40); WHITE BLOOD COUNT 7.2 10^3/uL (4.0-10.0)
[2023-01-10 22:57] LABS: LIPASE 33 U/L (12-53)
[2023-01-10 22:59] LABS: ALBUMIN 3.3 G/DL (3.2-5.2); ALKALINE PHOSPHATASE 77 U/L (46-116); ALT/SGPT 15 U/L (7.0-40); AST/SGOT 12 U/L (<34); BILIRUBIN,DIRECT < 0.1 MG/DL (<0.4); BILIRUBIN,TOTAL 0.3 MG/DL (0.3-1.2); BLOOD UREA NITROGEN 14 MG/DL (9-23); CALCIUM LEVEL 8.4 MG/DL (8.5-10.1); CARBON DIOXIDE LEVEL 24 MMOL/L (20-31); CHLORIDE LEVEL 108 MMOL/L (98-107); CREATININE FOR GFR 1.57 MG/DL (0.55-1.30); GLUCOSE, FASTING 106 MG/DL (60-100); POTASSIUM SERUM 3.7 MMOL/L (3.5-5.1); SODIUM LEVEL 139 MMOL/L (136-145); TOTAL PROTEIN 7.1 G/DL (5.7-8.2)
[2023-01-10 23:02] LABS: HCG, SERUM QUALITATIVE NEGATIVE (NEGATIVE)
[2023-01-11] MEDS ORDERED: NS 1,000 ML IV ONE
[2023-01-11] MEDS ORDERED: methocarbamoL 750 MG TAB PO ONE
[2023-01-11] MEDS ORDERED: LIDOCAINE 5% (LIDODERM) PATCH TD ONE
[2023-01-11] MEDS ORDERED: MECLIZINE 25 MG TABLET PO ONE
[2023-01-11] MEDS ORDERED: ONDANSETRON 4MG 2ML VIAL IV ONE
[2023-01-11] MEDS ORDERED: ISOVUE-370 76% 100ML VIAL As Ordered ONE (00:06)
[2023-01-11 00:44] LABS: INR 0.93; PROTHROMBIN TIME 12.7 SECONDS (12.5-14.5)
[2023-01-11 00:45] LABS: PARTIAL THROMBOPLASTIN TIME 26.5 SECONDS (24.8-34.2)
[2023-01-11 01:02] LABS: FREE THYROXINE INDEX 3.2 % (1.3-4.8); T UPTAKE 32.7 % (22.5-37.0); THYROID STIMULATING HORMONE 3.071 uIU/ML (0.55-4.78); THYROXINE (T4) 9.8 UG/DL (4.5-10.9)
[2023-01-11] MEDS ORDERED: MECL1TAB31 PO (01:53)
[2023-01-11] MEDS ORDERED: METH-1165 PO (01:53)
[2023-01-11] MEDS ORDERED: ASPE4PAD TOP (01:53)
[2023-01-11] MEDS ORDERED: FLON1SPR NARES (01:53)
[2023-01-11 02:13] VITALS: BP 193/99
== END 2023-01-11 02:25 | disposition home or self-care (01) ==
LOC: M ED 20:37
DX: R42 Dizziness and giddiness (principal); J01.90 Acute sinusitis, unspecified; M25.512 Pain in left shoulder; I10 Essential (primary) hypertension; Q61.3 Polycystic kidney, unspecified; E03.9 Hypothyroidism, unspecified
CPT/HCPCS: 36415; 70450; 70496; 70498; 80048; 80076; 83690; 84436; 84443; 84479; 84703; 85025; 85610; 85730; 96374; 99284; J2405; Q9967

== ENCOUNTER 2023-08-12 08:31 | Emergency (ER) | payer OTHER ==
[~2023-08-12] VITALS: Ht 167.6 cm; Wt 138.7 kg
[~2023-08-12 08:31] MED LIST changes: +ASPE4PAD TOP; +FLON1SPR NARES; -LOSA100T45 PO; +LOSA100T46 PO; +MECL-209 PO; +METH-1165 PO
[2023-08-12] MEDS ORDERED: BENZ200C70 PO (11:21)
[2023-08-12] MEDS ORDERED: AZIT-12 PO (11:21)
[2023-08-12 11:34] VITALS: BP 139/93; TEMP 98.3; O2SAT 98
[2023-08-12] MEDS ORDERED: ATEN50TA2 PO (12:18)
[2023-08-12] MEDS ORDERED: LOSA100T46 PO (12:18)
== END 2023-08-12 11:36 | disposition home or self-care (01) ==
LOC: M ED 08:31
DX: J18.1 Lobar pneumonia, unspecified organism (principal); I10 Essential (primary) hypertension

== ENCOUNTER → 2023-10-27 | Outpatient (REF) | payer OTHER ==
[~2023-10-27] MED LIST changes: +AZIT-12 PO; +BENZ200C70 PO
[2023-10-27 16:33] LABS: AMORPHOUS SEDIMENT SMALL (NEGATIVE); APPEARANCE, URINE CLEAR (CLEAR); BACTERIA, URINE AUTO 2+ (NEGATIVE); BILIRUBIN, URINE AUTO NEGATIVE (NEGATIVE); BLOOD, URINE BLOOD NEGATIVE (NEGATIVE); COLOR, URINE STRAW (YELLOW); GLUCOSE, URINE (UA) AUTO NEGATIVE (NEGATIVE); KETONE, URINE AUTO NEGATIVE (NEGATIVE); LEUKOCYTE ESTERASE, URINE AUTO TRACE (NEGATIVE); NITRITE, URINE AUTO NEGATIVE (NEGATIVE); PROTEIN, URINE AUTO 2+ mg/dL (NEGATIVE); RBC, URINE AUTO 1 /HPF (0-3); SQUAMOUS EPITHELIAL CELL UR AU 7 /HPF (0-6); UROBILINOGEN, URINE AUTO 0.2 mg/dL (0.0-2.0); WBC, URINE AUTO 3 /HPF (0-3)
== END ==
LOC: M LAB REF 16:15
PROVIDERS: ATTEND Physician Assistant
DX: N39.0 Urinary tract infection, site not specified (principal)

== ENCOUNTER 2023-12-20 05:36 | Emergency (ER) | payer OTHER ==
[~2023-12-20] VITALS: Ht 167.6 cm; Wt 144.5 kg
[2023-12-20 05:37] VITALS: TEMP 97.1
[2023-12-20] MEDS: atenoloL 50 MG TAB PO ONE (06:31)
[2023-12-20 06:52] LABS: BASO # 0.1 10^3/uL (0.0-0.2); BASO % 0.8 % (0.0-1.0); EOS # 0.4 10^3/uL (0.0-0.5); EOS % 6.6 % (0.0-3.0); HEMATOCRIT 39.9 % (36.0-47.0); HEMOGLOBIN 13.6 g/dl (12.0-15.5); LYMPH # 1.5 10^3/uL (1.5-5.0); LYMPH % 26.1 % (24.0-44.0); MEAN CORPUSCULAR HEMOGLOBIN 30.8 pg (27.0-33.0); MEAN CORPUSCULAR HGB CONC 34.1 g/dl (32.0-36.5); MEAN CORPUSCULAR VOLUME 90.3 fl (80.0-96.0); MONO # 0.4 10^3/uL (0.0-0.8); MONO % 6.5 % (2.0-8.0); NEUTROPHILS # 3.5 10^3/uL (1.5-8.5); NEUTROPHILS % 59.8 % (36.0-66.0); PLATELET COUNT, AUTOMATED 190 10^3/uL (150-450); RED BLOOD COUNT 4.42 10^6/uL (4.00-5.40); WHITE BLOOD COUNT 5.9 10^3/uL (4.0-10.0)
[2023-12-20 07:27] LABS: CALCIUM LEVEL 8.6 MG/DL (8.5-10.1); CREATININE FOR GFR 1.99 MG/DL (0.55-1.30); GLOMERULAR FILTRATION RATE 29.7 (>60); POTASSIUM SERUM 3.9 MMOL/L (3.5-5.1)
[2023-12-20 07:29] LABS: FREE T4 1.05 NG/DL (0.89-1.76); THYROID STIMULATING HORMONE 5.362 uIU/ML (0.55-4.78)
[2023-12-20] MEDS ORDERED: ATEN50TA2 PO (09:09)
[2023-12-20] MEDS ORDERED: LOSA100T46 PO (09:09)
[2023-12-20 09:14] VITALS: BP 174/71
[2023-12-20] MEDS: LOSARTAN 50MG TABLET PO ONE (09:14)
[2023-12-20 09:23] LABS: APPEARANCE, URINE CLEAR (CLEAR); BACTERIA, URINE AUTO NEGATIVE (NEGATIVE); BILIRUBIN, URINE AUTO NEGATIVE (NEGATIVE); BLOOD, URINE BLOOD NEGATIVE (NEGATIVE); COLOR, URINE STRAW (YELLOW); GLUCOSE, URINE (UA) AUTO NEGATIVE (NEGATIVE); KETONE, URINE AUTO NEGATIVE (NEGATIVE); LEUKOCYTE ESTERASE, URINE AUTO NEGATIVE (NEGATIVE); MUCUS, URINE SMALL (NEGATIVE); NITRITE, URINE AUTO NEGATIVE (NEGATIVE); PROTEIN, URINE AUTO 2+ mg/dL (NEGATIVE); RBC, URINE AUTO 1 /HPF (0-3); SPECIFIC GRAVITY URINE AUTO 1.009 (1.002-1.035); SQUAMOUS EPITHELIAL CELL UR AU 3 /HPF (0-6); UROBILINOGEN, URINE AUTO 0.2 mg/dL (0.0-2.0); WBC, URINE AUTO 1 /HPF (0-3)
[2023-12-20 09:48] VITALS: BP 179/89; O2SAT 98
== END 2023-12-20 09:54 | disposition home or self-care (01) ==
LOC: M ED 06:58
DX: S63.501A Unspecified sprain of right wrist, initial encounter (principal); I12.9 Hypertensive chronic kidney disease with stage 1 through stage 4 chronic kidney disease, or unspecified chronic kidney disease; W10.8XXA Fall (on) (from) other stairs and steps, initial encounter; Y92.89 Other specified places as the place of occurrence of the external cause; Y93.9 Activity, unspecified; Y99.9 Unspecified external cause status; E03.9 Hypothyroidism, unspecified; J45.909 Unspecified asthma, uncomplicated

== ENCOUNTER → 2024-03-22 | Outpatient (REF) ==
[~2024-03-22] MED LIST changes: +ONDA-282 PO; -ONDA4TAB6 PO
== END ==
LOC: M EMP 08:17
PROVIDERS: ATTEND Family Medicine
DX: Z11.52 Encounter for screening for COVID-19 (principal)

== ENCOUNTER 2024-04-03 12:23 | Emergency (ER) | payer OTHER ==
[~2024-04-03] VITALS: Ht 167.6 cm; Wt 145.3 kg
[2024-04-03 15:23] VITALS: BP 169/93; TEMP 97.5; O2SAT 99
== END 2024-04-03 15:24 | disposition home or self-care (01) ==
LOC: M ED 12:23
DX: S59.911A Unspecified injury of right forearm, initial encounter (principal); Y92.9 Unspecified place or not applicable; Y93.9 Activity, unspecified; Y99.9 Unspecified external cause status; W01.0XXA Fall on same level from slipping, tripping and stumbling without subsequent striking against object, initial encounter; I10 Essential (primary) hypertension; E03.9 Hypothyroidism, unspecified; J45.909 Unspecified asthma, uncomplicated; Z79.899 Other long term (current) drug therapy

== ENCOUNTER → 2024-05-02 | Outpatient (REF) | LOC: M EMP 14:39 | PROVIDERS: ATTEND Family Medicine | DX: Z11.52 Encounter for screening for COVID-19 (principal) ==

== ENCOUNTER 2024-06-28 08:56 | Emergency (ER) | payer OTHER ==
[~2024-06-28] VITALS: Ht 167.6 cm; Wt 147.5 kg
[2024-06-28] MEDS: NS 1,000 ML IV ONE (09:19)
[2024-06-28 09:35] LABS: BASO # 0.1 10^3/uL (0.0-0.2); BASO % 0.7 % (0.0-1.0); EOS # 0.5 10^3/uL (0.0-0.5); EOS % 5.9 % (0.0-3.0); HEMATOCRIT 37.4 % (36.0-47.0); HEMOGLOBIN 12.9 g/dl (12.0-15.5); LYMPH # 1.4 10^3/uL (1.5-5.0); LYMPH % 16.8 % (24.0-44.0); MEAN CORPUSCULAR HEMOGLOBIN 31.2 pg (27.0-33.0); MEAN CORPUSCULAR HGB CONC 34.5 g/dl (32.0-36.5); MEAN CORPUSCULAR VOLUME 90.3 fl (80.0-96.0); MONO # 0.4 10^3/uL (0.0-0.8); MONO % 5.2 % (2.0-8.0); NEUTROPHILS # 5.9 10^3/uL (1.5-8.5); NEUTROPHILS % 70.9 % (36.0-66.0); PLATELET COUNT, AUTOMATED 239 10^3/uL (150-450); RED BLOOD COUNT 4.14 10^6/uL (4.00-5.40); WHITE BLOOD COUNT 8.3 10^3/uL (4.0-10.0)
[2024-06-28 10:00] LABS: LIPASE 36 U/L (12-53)
[2024-06-28 10:02] LABS: ALBUMIN 3.1 G/DL (3.2-5.2); ALKALINE PHOSPHATASE 93 U/L (46-116); ALT/SGPT 14 U/L (7.0-40); AST/SGOT < 8 U/L (<34); BILIRUBIN,DIRECT < 0.1 MG/DL (<0.4); BILIRUBIN,TOTAL 0.3 MG/DL (0.3-1.2); BLOOD UREA NITROGEN 24 MG/DL (9-23); CALCIUM LEVEL 8.6 MG/DL (8.5-10.1); CARBON DIOXIDE LEVEL 21 MMOL/L (20-31); CHLORIDE LEVEL 111 MMOL/L (98-107); CK-MB VALUE MASS < 1.0 NG/ML (<3.6); CPK CREATINE PHOSPHOKINASE 79 U/L (34-145); CREATININE FOR GFR 1.99 MG/DL (0.55-1.30); GLOMERULAR FILTRATION RATE 29.5 (>58); GLUCOSE, FASTING 130 MG/DL (60-100); MB/CK RELATIVE INDEX 1.26 (< OR =4); POTASSIUM SERUM 3.8 MMOL/L (3.5-5.1); SODIUM LEVEL 139 MMOL/L (136-145); TOTAL PROTEIN 6.4 G/DL (5.7-8.2)
[2024-06-28 10:52] LABS: CK-MB VALUE MASS < 1.0 NG/ML (<3.6)
[2024-06-28 11:02] LABS: CPK CREATINE PHOSPHOKINASE 80 U/L (34-145); MB/CK RELATIVE INDEX 1.25 (< OR =4)
[2024-06-28] MEDS: MECLIZINE 25 MG TABLET PO ONE (11:29)
[2024-06-28] MEDS ORDERED: MECL-209 PO (14:42)
[2024-06-28] MEDS ORDERED: AFRISPR3 (14:43)
[2024-06-28] MEDS ORDERED: FLON1SPR NARES (14:44)
[2024-06-28 15:08] VITALS: BP 145/87; TEMP 96.8; O2SAT 99
== END 2024-06-28 15:23 | disposition home or self-care (01) ==
LOC: M ED 08:56 → EDBD 08:56 → M ED 15:23
DX: H81.393 Other peripheral vertigo, bilateral (principal); I10 Essential (primary) hypertension; Z79.899 Other long term (current) drug therapy

== ENCOUNTER → 2024-10-19 | Outpatient (REF) ==
[~2024-10-19] MED LIST changes: +AFRISPR3
== END ==
LOC: M EMP 15:38
PROVIDERS: ATTEND Family Medicine
DX: Z11.52 Encounter for screening for COVID-19 (principal)

== ENCOUNTER 2025-08-10 15:26 | Emergency (ER) | payer OTHER ==
[2025-08-10] MEDS ORDERED: CARV6.25 PO (16:33)
[2025-08-10] MEDS ORDERED: AMLO1TAB25 PO (16:34)
== END 2025-08-10 15:35 | disposition admitted as inpatient to this hospital (09) ==
LOC: M ED 15:26
DX: Z53.21 Procedure and treatment not carried out due to patient leaving prior to being seen by health care provider (principal)

== ENCOUNTER 2025-08-10 15:44 | Outpatient (CLI) | payer OTHER ==
[~2025-08-10] VITALS: Ht 167.6 cm; Wt 139.4 kg
[2025-08-10 16:05] VITALS: BP 178/98
[2025-08-10 16:21] VITALS: BP 153/85
[2025-08-10] MEDS ORDERED: CARV6.25 PO (16:33)
[2025-08-10] MEDS ORDERED: AMLO1TAB25 PO (16:34)
== END 2025-08-10 17:52 | disposition home or self-care (01) ==
LOC: M LDO 15:44
PROVIDERS: ATTEND Advanced Practice Midwife
DX: O10.012 Pre-existing essential hypertension complicating pregnancy, second trimester (principal); O09.522 Supervision of elderly multigravida, second trimester; O99.212 Obesity complicating pregnancy, second trimester; O26.892 Other specified pregnancy related conditions, second trimester; Z3A.00 Weeks of gestation of pregnancy not specified

== ENCOUNTER → 2025-09-13 | Outpatient (REF) ==
[~2025-09-13] MED LIST changes: +AMLO1TAB25 PO; +CARV6.25 PO
== END ==
LOC: M EMP 15:00
PROVIDERS: ATTEND Family Medicine
DX: Z01.89 Encounter for other specified special examinations (principal)